=== PATIENT | male | born 1965 | race Caucasian/White ===

== ENCOUNTER → 2019-04-16 11:58 | Outpatient (BNVA) | payer MEDICAID, SELFPAY | PROVIDERS: Family Provider Family Medicine; PCP Family Medicine; Visit Provider Family Medicine | DX: E11.69 Type 2 diabetes mellitus with other specified complication (principal); I10 Essential (primary) hypertension; E78.5 Hyperlipidemia, unspecified; M96.1 Postlaminectomy syndrome, not elsewhere classified; J02.9 Acute pharyngitis, unspecified; J44.9 Chronic obstructive pulmonary disease, unspecified | CPT/HCPCS: 36415; 80053; 80061; 82044; 83036; 85025; 87070 ==

== ENCOUNTER → 2019-05-02 14:50 | Outpatient (BNVA) | payer MEDICAID, SELFPAY | PROVIDERS: Family Provider Family Medicine; PCP Family Medicine; Visit Provider Anesthesiology | DX: G89.29 Other chronic pain (principal); M54.5 Low back pain; M96.1 Postlaminectomy syndrome, not elsewhere classified; M79.651 Pain in right thigh; M79.652 Pain in left thigh; F17.210 Nicotine dependence, cigarettes, uncomplicated; Z79.891 Long term (current) use of opiate analgesic | CPT/HCPCS: 99214 ==

== ENCOUNTER → 2019-05-16 15:09 | Outpatient (BNVA) | payer MEDICAID, SELFPAY | PROVIDERS: Family Provider Family Medicine; PCP Family Medicine; Visit Provider Family Medicine | DX: I10 Essential (primary) hypertension (principal); E78.5 Hyperlipidemia, unspecified; E11.9 Type 2 diabetes mellitus without complications; J44.9 Chronic obstructive pulmonary disease, unspecified; R09.81 Nasal congestion; R35.1 Nocturia | CPT/HCPCS: 80053; 80061; 82044; 83036; 84153; 85025 ==

== ENCOUNTER → 2019-06-10 09:22 | Outpatient (BNVA) | payer MEDICAID, SELFPAY | PROVIDERS: Family Provider Family Medicine; PCP Family Medicine; Visit Provider Otolaryngology | DX: H60.8X3 Other otitis externa, bilateral (principal); J32.9 Chronic sinusitis, unspecified; R47.02 Dysphasia; J34.2 Deviated nasal septum; J34.3 Hypertrophy of nasal turbinates; K21.9 Gastro-esophageal reflux disease without esophagitis; F17.210 Nicotine dependence, cigarettes, uncomplicated; F17.220 Nicotine dependence, chewing tobacco, uncomplicated | CPT/HCPCS: 99203; 99214 ==

== ENCOUNTER 2019-06-17 11:50 | Outpatient (CLI) | payer MEDICAID, SELFPAY ==
--- NOTE | 2019-06-17 14:00 | CT_ITS ---
WS: [id number] CT scan of the sinuses without IV contrast. Additional two-dimensional coronal and sagittal reconstru ction was performed. 06/17/2019 Clinical Data: chronic sinusitis Comparison: None. DLP: 607.[address] scans at [facility] use at least one of these dose optimization techniques: automat ed exposure control; mA and/or kV adjustment per patient size (includes targeted exams where dose is matched to clinical indication); or iterative reconstruction. Findings: The sinus cavities show no air-fluid levels or bone destruction. There is mucoperiosteal thickening o f the frontal and ethmoid sinuses. The sphenoid and maxillary sinuses are clear. The orbits are intac t. The nasal bones are unremarkable. The intraorbital contents show no abnormalities. CT/CT sinus wo con* [id number] Impression: Minimal mucoperiosteal thickening of the ethmoid and frontal sinuses.
== END 2019-06-17 11:51 | disposition home or self-care (01) ==
LOC: RAD 11:54
PROVIDERS: Family Provider Family Medicine; PCP Family Medicine; Visit Provider Otolaryngology
DX: J32.9 Chronic sinusitis, unspecified (principal)
CPT/HCPCS: 70486

== ENCOUNTER → 2019-06-25 09:14 | Outpatient (BNVA) | payer MEDICAID, SELFPAY | PROVIDERS: Family Provider Family Medicine; PCP Family Medicine; Visit Provider Otolaryngology | DX: J32.9 Chronic sinusitis, unspecified (principal); J34.2 Deviated nasal septum; J34.3 Hypertrophy of nasal turbinates; K21.9 Gastro-esophageal reflux disease without esophagitis; R47.02 Dysphasia; H60.8X3 Other otitis externa, bilateral; F17.210 Nicotine dependence, cigarettes, uncomplicated | CPT/HCPCS: 96372; 99214; J3301 ==

== ENCOUNTER 2019-07-11 07:44 | Outpatient (CLI) | payer MEDICAID, SELFPAY ==
--- NOTE | 2019-07-11 08:00 | USCV_ITS ---
Terence Kate Age: 54 Gender: M : 1965 Exam Date: 07/11/2019 07:49 Ordering Phys: Brigette Newsome DO Technologist: Eliza Adair Exam Location: [facility] [place] Indication: PEDAL EDEMA BP: 130 / 80 HR: 71 Rhythm: Sinus Technical Quality: Suboptimal MEASUREMENTS (Male / Female) Normal Values 2D ECHO LV Diastolic Diameter PLAX 4.1 cm 4.2 - 5.9 / 3.9 - 5.3 cm LV Systolic Diameter PLAX 3.4 cm IVS Diastolic Thickness 1.3 cm 0.6 - 1.0 / 0.6 - 0.9 cm IVS Systolic Thickness 1.7 cm LVPW Diastolic Thickness 1.2 cm 0.6 - 1.0 / 0.6 - 0.9 cm LVPW Systolic Thickness 1.5 cm LVOT Diameter 2.1 cm LV Ejection Fraction 2D Teich 38.3 % LV Ejection Fraction MOD 2C 63.3 % LV Ejection Fraction 2C AL 64.2 % LA Diameter 4.0 cm LA Width 4.4 cm LA Height 5.2 cm RA Width 3.9 cm RA Height 4.7 cm Aorta at Sinotubular Diameter 2.5 cm M-MODE LV Diastolic Diameter MM 4.9 cm 4.2 - 5.9 / 3.9 - 5.3 cm LV Systolic Diameter MM 3.5 cm LV Ejection Fraction MM Teich 55.9 % IVS Diastolic Thickness MM 0.7 cm 0.6 - 1.0 / 0.6 - 0.9 cm IVS Systolic Thickness MM 1.2 cm LVPW Diastolic Thickness MM 1.0 cm 0.6 - 1.0 / 0.6 - 0.9 cm LVPW Systolic Thickness MM 1.7 cm RV Diastolic Diameter MM 1.6 cm Aortic Annulus Diameter 2.8 cm LA Ao Ratio MM 1.4 MV E Point Septal Separation 0.6 cm DOPPLER AV Peak Velocity 119.0 cm/s LVOT Peak Velocity 107.0 cm/s AV Area Cont Eq vti 2.9 cm squared AV Area Cont Eq pk 3.1 cm squared MV Area PHT 4.8 cm squared Mitral E to A Ratio 1.0 MV E' Velocity 11.0 cm/s Mitral E to MV E' Ratio 8.2 Mitral E to LV E' Lateral Ratio 8.3 Mitral E to LV E' Septal Ratio 8.2 TR Peak Velocity 202.0 cm/s TR Peak Gradient 16.3 mmHg TV Peak E Velocity 94.0 cm/s Right Atrial Pressure 3.0 mmHg Pulmonary Artery Systolic Pressu 19.3 mmHg PV Peak Velocity 92.0 cm/s FINDINGS Left Ventricle Normal left ventricular size and systolic function, EF 63 %. No regional wall motion abnormalities. Right Ventricle Possibly of normal size and ejection fraction. Could not be visualized well Right Atrium Possibly of normal size Left Atrium The left atrium is normal in size. Mitral Valve No gross abnormalities noted Aortic Valve No gross abnormalities noted Tricuspid Valve No gross abnormalities noted Pulmonic Valve Pulmonic valve not well visualized. Pericardium Mildly dilated IVC Aorta Normal aortic annulus size. CONCLUSIONS Normal left ventricular size and systolic function, EF 63 %. No gross wall motion abnormalities. The right atrium right ventricle appears to be of normal size with normal RV ejection fraction. Mildly dilated IVC. There is no pericardial effusion. There are no intracardiac masses. Technically difficult study because of the poor ultrasonic window. Dr Everardo Lynn MD FACC (Electronically Signed) Final Date: 11 July 2019 13:36 S
== END 2019-07-11 07:45 | disposition home or self-care (01) ==
LOC: US 07:45
PROVIDERS: Family Provider Family Medicine; PCP Family Medicine; Visit Provider Family Medicine
DX: R63.5 Abnormal weight gain (principal); R06.02 Shortness of breath
CPT/HCPCS: 93306

== ENCOUNTER → 2019-07-23 14:34 | Outpatient (BNVA) | payer MEDICAID, SELFPAY | PROVIDERS: Family Provider Family Medicine; PCP Family Medicine; Visit Provider Family Medicine | DX: R60.0 Localized edema (principal) | CPT/HCPCS: 80048 ==

== ENCOUNTER → 2019-08-15 11:52 | Outpatient (BNVA) | payer MEDICAID, SELFPAY | PROVIDERS: Family Provider Family Medicine; PCP Family Medicine; Referring Provider Family Medicine; Visit Provider Family Medicine | DX: J20.9 Acute bronchitis, unspecified (principal); F17.219 Nicotine dependence, cigarettes, with unspecified nicotine-induced disorders | CPT/HCPCS: 87449 ==

== ENCOUNTER → 2019-10-11 12:40 | Outpatient (BNVA) | payer MEDICAID, SELFPAY | PROVIDERS: Family Provider Family Medicine; PCP Family Medicine; Visit Provider Nurse Practitioner | DX: G89.29 Other chronic pain (principal); M54.2 Cervicalgia; M54.5 Low back pain; M96.1 Postlaminectomy syndrome, not elsewhere classified; F17.219 Nicotine dependence, cigarettes, with unspecified nicotine-induced disorders; F17.220 Nicotine dependence, chewing tobacco, uncomplicated; Z71.6 Tobacco abuse counseling | CPT/HCPCS: 99213 ==

== ENCOUNTER → 2019-11-20 09:18 | Outpatient (BNVA) | payer MEDICAID, SELFPAY | PROVIDERS: Family Provider Family Medicine; PCP Family Medicine; Visit Provider Family Medicine | DX: E11.9 Type 2 diabetes mellitus without complications (principal); E78.5 Hyperlipidemia, unspecified; I10 Essential (primary) hypertension; R41.3 Other amnesia; Z68.41 Body mass index [BMI] 40.0-44.9, adult; F17.210 Nicotine dependence, cigarettes, uncomplicated; Z71.6 Tobacco abuse counseling; Z71.89 Other specified counseling | CPT/HCPCS: 80053; 80061; 83036 ==

== ENCOUNTER → 2019-12-23 14:01 | Outpatient (BNVA) | payer MEDICAID, SELFPAY | PROVIDERS: Family Provider Family Medicine; PCP Family Medicine; Visit Provider Family Medicine | DX: Z20.828 Contact with and (suspected) exposure to other viral communicable diseases (principal) | CPT/HCPCS: 87635 ==

== ENCOUNTER → 2019-12-25 14:33 | Outpatient (BNVA) | payer MEDICAID, SELFPAY | PROVIDERS: Family Provider Family Medicine; PCP Family Medicine; Visit Provider Family Medicine Adult Medicine | DX: R19.7 Diarrhea, unspecified (principal) | CPT/HCPCS: 80048 ==

== ENCOUNTER → 2020-01-22 12:42 | Outpatient (BNVA) | payer MEDICAID, SELFPAY | PROVIDERS: Family Provider Family Medicine; PCP Family Medicine; Visit Provider Anesthesiology | DX: G89.29 Other chronic pain (principal); M54.42 Lumbago with sciatica, left side; M54.41 Lumbago with sciatica, right side; M54.2 Cervicalgia; M96.1 Postlaminectomy syndrome, not elsewhere classified; F17.219 Nicotine dependence, cigarettes, with unspecified nicotine-induced disorders; Z79.891 Long term (current) use of opiate analgesic | CPT/HCPCS: 99214 ==

== ENCOUNTER → 2020-04-23 14:23 | Outpatient (BNVA) | payer MEDICAID, SELFPAY | PROVIDERS: Family Provider Family Medicine; PCP Family Medicine; Referring Provider Dermatology; Visit Provider Orthopaedic Surgery | DX: M54.5 Low back pain (principal); M43.16 Spondylolisthesis, lumbar region; M47.22 Other spondylosis with radiculopathy, cervical region; G89.29 Other chronic pain | CPT/HCPCS: 72114 ==

== ENCOUNTER → 2020-04-28 12:31 | Outpatient (BNVA) | payer MEDICAID, SELFPAY | PROVIDERS: Family Provider Family Medicine; PCP Family Medicine; Visit Provider Anesthesiology | DX: G89.29 Other chronic pain (principal); M54.5 Low back pain; M96.1 Postlaminectomy syndrome, not elsewhere classified; F17.219 Nicotine dependence, cigarettes, with unspecified nicotine-induced disorders; Z79.891 Long term (current) use of opiate analgesic | CPT/HCPCS: 99213 ==

== ENCOUNTER 2020-05-11 16:20 | Outpatient (CLI) | payer MEDICAID, SELFPAY ==
--- NOTE | 2020-05-11 16:45 | MR_ITS ---
WS: [id number] MRI CERVICAL SPINE NONCONTRAST TECHNIQUE: Sagittal T1, T2 and STIR imaging. Axial T2, gradient, and fiesta imaging. CLINICAL INFORMATION: M47.22 - Other spondylosis with radiculopathy, cervical region COMPARISON: MRI 4 017 FINDINGS: Straightening of the normal cervical lordosis. Disc osteophyte complex at C4-C5 and C5-C6. Cord signa l is normal. C2-C3: Normal. C3-C4: Mild right and no significant left foraminal narrowing. Spinal canal is patent. C4-C5: Disc osteophyte complex with endplate ridging. Moderate central canal stenosis. Slight impinge ment on the cervical cord. Moderate bilateral bony foraminal narrowing. Mild facet arthropathy. C5-C6: Disc osteophyte complex with endplate ridging. Right pericentral disc osteophyte protrusion wi th moderate central canal stenosis. Moderate left and mild right bony foraminal narrowing. Moderate f acet arthropathy. C6-C7: Mild left and no significant right foraminal narrowing. Spinal canal is patent. C7-T1: Mild left greater than right bony foraminal narrowing. Spinal canal is patent. Visualized brain stem structures: Normal. Prevertebral soft tissues: Normal. MR/MR cervical spin wo con* [id number] IMPRESSION: 1. Straightening of the normal cervical lordosis. Cord signal is normal. 2. Moderate central canal stenosis C4-C5 and C5-C6 due to disc osteophyte comp lexes and slight contact of the cervical cord. Protrusion at C4-5 has improved slightly compared to 2017. 3. Moderate bony foraminal narrowing worse at bilateral C4-5, left C5-C6
--- NOTE | 2020-05-11 17:30 | MR_ITS ---
WS: [id number] MRI LUMBAR SPINE NONCONTRAST TECHNIQUE: Sagittal T1, T2 and STIR imaging. Axial T1 and T2 imaging. CLINICAL INFORMATION: M43.10 - Spondylolisthesis, site unspecified COMPARISON: CT October 24, 2017 FINDINGS: Mild lumbar curve convex left. No acute compression. No high-grade central canal stenosis. Postoperat jerry changes laminectomies right L3-4 and bilateral L4-5. Mild disc bulging lower thoracic spine at T1 0-11 and T11-T12. L1-L2: Mild annular bulging. Slight effacement of ventral thecal sac. Mild right foraminal narrowing. Mild central canal stenosis. Moderate facet arthropathy. L2-L3: Mild disc bulging with moderate central canal stenosis. Moderate facet arthropathy. Mild bilat eral foraminal narrowing right greater than left. L3-L4: Postoperative changes right hemilaminectomy. Mild central canal stenosis. Foramen are patent. Moderate facet arthropathy. L4-L5: Grade 1 anterolisthesis L4 on L5. Disc bulging with impingement on the exiting right L4 nerve root. Moderate right foraminal narrowing. Mild left foraminal narrowing. Moderate to advanced facet a rthropathy. L5-S1: Tiny central disc protrusion. Slight effacement of ventral thecal sac. Foramen are patent. Mil d facet arthropathy. Visualized pelvic bony structures: Normal. Paravertebral soft tissues: Normal. MR/MR lumbar spine wo con* [id number] IMPRESSION: 1. Mild lumbar curve. No acute compression. Prior laminectomy defects L3-L4 an d L4-L5. 2. Grade 1 anterolisthesis L4 on L5 progressed from previous. Moderate central canal stenosis L4-5 with impingement on the exiting right L4 nerve root. Moder ate right foraminal narrowing. Correlation for right L4 nerve root symptoms. 3. Slight retrolisthesis L1 on L2 with mild central canal stenosis and narrowi ng of the right subarticular recess. 4. Moderate central canal stenosis L2-3. 5. Moderate facet arthropathy worse at L3-L4 and L4-L5.
== END 2020-05-11 16:21 | disposition home or self-care (01) ==
LOC: RADSHAW 16:21
PROVIDERS: PCP Family Medicine; Visit Provider Orthopaedic Surgery
DX: M47.22 Other spondylosis with radiculopathy, cervical region (principal); M43.10 Spondylolisthesis, site unspecified; M47.816 Spondylosis without myelopathy or radiculopathy, lumbar region; M96.1 Postlaminectomy syndrome, not elsewhere classified; M48.02 Spinal stenosis, cervical region; M25.78 Osteophyte, vertebrae; M50.221 Other cervical disc displacement at C4-C5 level
CPT/HCPCS: 72141; 72148

== ENCOUNTER → 2020-06-04 10:16 | Outpatient (BNVA) | payer MEDICAID, SELFPAY | PROVIDERS: PCP Family Medicine; Visit Provider Specialist | DX: M25.561 Pain in right knee (principal); M25.562 Pain in left knee | CPT/HCPCS: 73560; 73565 ==

== ENCOUNTER → 2020-06-18 | Day surgery (SDC) | payer MEDICAID, SELFPAY | PROVIDERS: PCP Family Medicine; Visit Provider Orthopaedic Surgery | DX: Z01.818 Encounter for other preprocedural examination (principal) | CPT/HCPCS: 93005 ==

== ENCOUNTER → 2020-06-19 13:54 | Outpatient (BNVA) | payer MEDICAID, SELFPAY | PROVIDERS: PCP Family Medicine; Visit Provider Family Medicine | DX: Z01.818 Encounter for other preprocedural examination (principal); Z20.822 Contact with and (suspected) exposure to COVID-19; R09.81 Nasal congestion; M47.12 Other spondylosis with myelopathy, cervical region | CPT/HCPCS: 87635 ==

== ENCOUNTER 2020-06-24 07:33 | Day surgery (SDC) | payer MEDICAID, SELFPAY ==
--- NOTE | 2020-06-18 09:50 | ECG_ITS ---
[facility] Test Date: 2020-06-18 Pat Name: Terence Kate Department: Room: Gender: Male Engineering Administrator: : 1965 Requested By: Issac Kwon Order Number: [id number] Pj MD: Everardo Lynn M.D. Measurements Intervals [place] Rate: 86 P: 53 TX: 188 QRS: 14 QRSD: 93 T: 46 QT: 357 QTc: 427 Interpretive Statements SINUS RHYTHM LOW QRS VOLTAGE IN PRECORDIAL LEADS [QRS DEFLECTION < 1.0 mV IN CHEST LEADS] Compared to ECG 11/05/2016 19:32:48 Low QRS voltage now present Ventricular premature complex(es) no longer present Electronically Signed On 06-19-2020 23:17:58 CDT by Everardo Lynn M.D. [id number]
--- NOTE | 2020-06-18 09:50 | XR_ITS ---
WS: [id number] XR chest 2V* [id number] REASON FOR EXAM: pre op FINDINGS: The chest is unchanged compared to 02/08/2018. The heart and mediastinum are within normal limits. Calcified granulomatous disease is seen bilaterally. No active pulmonary parenchymal or pleural disease is noted. Mild to moderate changes of degenerative spondylosis in the mid and lower thoracic spine. XR/XR chest 2V* [id number] IMPRESSION: No acute chest abnormality.
--- NOTE | 2020-06-18 09:51 | ANES.PREANE2 ---
Pre-Anesthetic Assessment Pre-Anesthetic Assessment: Height/Weight: Height 1.75 m Weight 133.356 kg Preop Diagnosis: cervical spondylosis with myelopathy Proposed Procedure: Operation Date: 06/24/20 09:20 Proposed Procedures p C4/ 5/6 [id number], [id number], 83633, 17442, 09048 M47.12(Not Applicable) - Nadir Arrington, DO Was Beta Ariel taken within 24 hours: N/A Was Clonidine taken within 24 hours: N/A Social: Social History: Tobacco and No alcohol Exam: Pre-Anes Outpt Exam: alert, oriented x 3 and regular rate & rhythm Additional Exam Findings (including area of procedure): rhonchi Airway: Submandibular: WNL Cervical ROM: WNL MP: 2 Dentition: False Pulmonary: Pulmonary: COPD, JOHNS and Sleep apnea CV/HEM: CV/HEM: CAD, HTN and PVD GI: GI: GERD and PUD Metabolic: Metabolic: DM and Morbid obesity Musc/skel: Musc/skel: OA/DJD Comments: Chronic back pain, BUE pain/weak Anesthetic Plan: ASA status: 3 Anesthesia: General Other: A.line Risk of > 500 ml blood loss (7ml/kg in children): No PFSH Anesthesia PFSH: Medical History Lucio esophagus BPH (benign prostatic hyperplasia) Carotid stenosis, left CHF (congestive heart failure) Chronic GERD Chronic otitis externa Chronic sinusitis COPD, moderate Deviated septum Dyslipidemia Dysphasia Encounter for long-term (current) use of NSAIDs Encounter for long-term opiate analgesic use Encounter for long-term opiate analgesic use Epilepsy Essential (primary) hypertension GERD (gastroesophageal reflux disease) Lumbar post-laminectomy syndrome Nasal turbinate hypertrophy Opioid contract exists Personal history of peptic ulcer disease Type 2 diabetes mellitus, without long-term current use of insulin Surgical History H/O carpal tunnel repair H/O cataract extraction H/O hernia repair History of back surgery History of cholecystectomy Family History Father Cancer LUNG Diabetes CAD (coronary artery disease) Mother Cancer STOMACH CAD (coronary artery disease) Sister Down syndrome HALF SISTER Other Parkinson disease Social History Smoking and tobacco status: current every day smoker cigarettes Packs smoked per day: 1 and smokeless tobacco Quit status (tobacco): considering quitting Alcohol intake: former Lives independently: Yes Household members: spouse History of recent travel: No Data Anesthesia CBC & Chem 7: 06/18/20 09:39 06/18/20 09:29 Cardiac Studies: No Data to Display
[2020-06-18 09:53] LABS: Basophils # 0.1 10^3/uL (0.0-0.1); Basophils % 0.6 %; Eosinophils # 0.2 10^3/uL (0.0-0.8); Eosinophils % 1.8 %; Hematocrit 47.6 % (42.0-52.0); Hemoglobin 15.7 g/dL (11.7-16.6); Lymphocytes # 1.7 10^3/uL (0.8-4.8); Lymphocytes % 19.5 %; Mean Corpuscular Hemoglobin 31.4 pg (28.0-34.0); Mean Corpuscular Volume 95.2 fL (80-94); Mean Platelet Volume 9.2 fL (7.4-10.4); Monocytes # 0.5 10^3/uL (0.2-0.9); Monocytes % 5.4 %; Neutrophils # 6.27 10^3/uL (1.8-7.7); Neutrophils % 72.4 %; Nucleated Red Blood Cells % 0 %; Platelet Count 221 10^3/cmm (130-400); Red Cell Distribution Width 13.2 % (12.1-15.1); White Blood Count 8.7 10^3/uL (4.0-10.0)
[2020-06-18 10:10] LABS: Alanine Aminotransferase 24 U/L (0-41); Albumin Level 3.8 g/dL (3.5-5.2); Alkaline Phosphatase 69 IU/L (40-130); Anion Gap 14.8 (5-19); Aspartate Amino Transferase 22 U/L (0-40); Blood Urea Nitrogen 15 mg/dL (6-20); Calcium 9.2 mg/dL (8.5-10.5); Carbon Dioxide 28 mmol/L (22-29); Chloride 98 mmol/L (98-107); Glomerular Filtration Rate 87.6 mL/min (90-130); Glucose 111 mg/dL (65-115); Osmolality Calculated 286 mOsm/kg (285-295); Potassium 3.8 mmol/L (3.5-5.1); Sodium 137 mmol/L (136-145); Total Bilirubin 0.3 mg/dL (0.15-1.2); Total Protein 6.8 g/dL (6.6-8.7)
[2020-06-24] VITALS (13 sets, daily range): BP systolic 128–175; BP diastolic 82–109; PULSE 88–99; RESP 12–22; TEMP 36.4–37.2; O2SAT 94–100
--- NOTE | 2020-06-24 | SCC_ITS ---
Procedure Done: 1. Anterior diskectomy C4/5 2. Anterior discectomy C5/6 3. Insertion of cage C4/5 4. Insertion of Cage C5/6 5. Instrumentation with anterior plate from C4-C6 6. Use of allograft 28.4 seconds of fluoroscopic guidance, for a cumulative dose of 4.52 mGy, was provided to Dr. Arrington by the radiology department. C-arm images of the cervical spine were saved for the patient's permanent record. MIRIAND
--- NOTE | 2020-06-24 | XR_ITS ---
WS: [id number] Exam: XR cervical spine 3V* [id number] Date/Time of Exam: 06/24/2020 12:00 AM Reason For Exam: ACDF Intraoperative C-arm images of the cervical spine in the lateral and AP projection are submitted for evaluation. There is anterior cervical fusion from C4 to C6 with anterior plate and screw fixation. There are dis c spacers at C4-5 and C5-6. The fusion appears to be in good alignment. An endotracheal tube is noted in the airway and ends at about the level of T3. XR/XR cervical spine 3V* [id number] IMPRESSION: 1. Anterior fusion of the C-spine from C4 to C6 appearing to be in satisfactory alignment.
[2020-06-24] MEDS: sodium chloride 0.9% 1,000 ML 30 ML IV (08:14)
[2020-06-24 08:18] LABS: Glucose Point of Care 115 mg/dL (70-110)
--- NOTE | 2020-06-24 09:23 | W.PM.OPSUD ---
Surgery/Procedure H&P Update DATE OF PROCEDURE: June 24, 2020 DATE H&P PERFORMED: 06/24/20 H&P UPDATE INFORMATION: I have reviewed H&P completed within last 30 days PREOP DIAGNOSIS: cervical spondylosis with myelopathy PLANNED PROCEDURE: Operation Date: 06/24/20 09:20 Proposed Procedures p C4/ 5/6 [id number], [id number], 36403, 34828, 96321 M47.12(Not Applicable) - Nadir Arrington DO
--- NOTE | 2020-06-24 09:24 | P.HP_ITS ---
Providers/Chief Complaint Primary Care Provider: Brigette Newsome DO Chief Complaint: C4/ 5/6 [id number], [id number], 05615, 41722, 84553 History of Present Illness Terence Kate is a 55 year old male here for low back pain. Chief Complaint: pain from neck to the back Onset: 2 months ago he stepped into a hole and fell Duration: 2 months Characteristics: burning, stabbing, ache numbness Severity: 10+ Location: low back Radiating symptoms: bilateral hip, and knee pain Aggravating factors: sitting causes burning sensation, standing Alleviating factors: rest/sitting, back brace Neuro deficits: denies incontinence of bowel, saddle anesthesia. Prior tx: fusion with Dr. Perez in 2017. Injections with no releif Review of Systems Narrative: General: Reports: 10 or more systems reviewed and unremarkable except as noted in History and below Const: Denies: fever(s) or chills Eyes: Denies: change in vision ENMT: Denies: throat pain Card: Denies: chest pain or dyspnea on exertion Resp: Denies: dyspnea, productive cough or wheezing GI: Denies: abdominal pain, nausea or vomiting Musc: Reports: limited range of motion Skin/Breast: Denies: changes in skin color or dry skin Neuro: Reports: numbness in extremities and weakness in extremities Psych: Denies: anxiety Naeem/Lymph: Denies: easy bruising or easy bleeding Medications/Allergies Home Medications Medication Instructions Recorded Confirmed Last Taken Type albuterol sulfate 90 mcg/actuation 2 puff INHALATION Q6H PRN #8.5 gm 04/08/19 06/24/20 06/24/20 06:00 Rx aerosol inhaler acetaminophen 500 mg tablet 1,000 mg PO Q6H PRN 04/16/19 06/19/20 06/18/20 History aspirin 81 mg tablet,delayed 81 mg PO ONCE 04/16/19 06/24/20 06/18/20 History release triamcinolone acetonide 0.1 % 1 applic TOPICAL BID 04/16/19 06/24/20 06/23/20 History topical cream diabetic shoes with leg brace #1 ea 10/17/19 06/19/20 Unknown Rx tamsulosin 0.4 mg capsule 0.8 mg PO ONCE #180 cap 01/02/20 06/19/20 06/23/20 Rx metformin 500 mg tablet 500 mg PO BID #180 tab 01/21/20 06/19/20 06/23/20 Rx terbinafine HCl 1 % topical cream 1 applic TOPICAL .1-2 times daily 02/06/20 06/19/20 06/23/20 Rx #30 gm blood sugar diagnostic #100 each 04/07/20 06/19/20 Unknown Rx mupirocin 2 % topical ointment 1 applic TOPICAL BID #30 g 04/23/20 06/24/20 06/21/20 Rx tramadol 50 mg tablet 50 mg PO BID PRN 30 Days #60 tab 04/28/20 06/24/20 06/23/20 Rx baclofen 5 mg tablet 5 mg PO TID PRN #90 tab 05/04/20 06/19/20 06/23/20 Rx amlodipine 5 mg tablet 5 mg PO ONCE #30 tab 06/01/20 06/19/20 06/23/20 Rx budesonide-formoterol HFA 160 2 puff INHALATION BID #10.2 gm 06/01/20 06/19/20 06/24/20 06:00 Rx mcg-4.5 mcg/actuation aerosol inhaler finasteride 5 mg tablet 5 mg PO ONCE #30 tab 06/01/20 06/24/20 06/23/20 Rx furosemide 40 mg tablet 40 mg PO QAM #30 tab 06/01/20 06/24/20 06/23/20 Rx gabapentin 800 mg tablet 800 mg PO TID #90 tab 06/01/20 06/19/20 06/23/20 Rx hydrochlorothiazide 25 mg tablet 25 mg PO ONCE #30 tab 06/01/20 06/24/20 06/23/20 Rx nitroglycerin 0.4 mg sublingual See Rx Instructions .ROUTE 06/01/20 06/24/20 Unknown Rx tablet .COMPLEX #25 each pantoprazole 40 mg tablet,delayed 40 mg PO ONCE #30 tab 06/01/20 06/24/20 06/23/20 Rx release potassium chloride 20 mEq 20 meq PO BID #60 tab 06/01/20 06/19/20 06/23/20 Rx tablet,extended release simvastatin 10 mg tablet 10 mg PO DAILY #30 tab 06/01/20 06/19/20 06/23/20 Rx AFO for foot drop bilaterally #1 ea 06/04/20 06/19/20 Unknown Rx Diabetic shoes with inserts #1 ea 06/04/20 06/19/20 Unknown Rx toe sleeve for second toe left #1 ea 06/04/20 06/19/20 Unknown Rx foot fexofenadine 180 mg tablet 180 mg PO DAILY #30 tab 06/19/20 06/19/20 06/23/20 Rx mometasone 50 mcg/actuation nasal 2 spray INTRANASAL DAILY #17 g 06/19/20 06/19/20 Unknown Rx spray Allergies Allergy/AdvReac Type Severity Reaction Status Date / Time acetaminophen [From Percocet] Allergy ALGY-Difficulty Verified 06/24/20 07:45 Breathing bupropion [From Zyban] Allergy Unknown Verified 06/24/20 07:45 duloxetine [From Cymbalta] Allergy ALGY-Difficulty Verified 06/24/20 07:45 Swallowing levofloxacin [From Levaquin] Allergy ADR-Itching Verified 06/24/20 07:45 loratadine [From Claritin] Allergy ALGY-Rash Verified 06/24/20 07:45 oxycodone [From Percocet] Allergy ALGY-Difficulty Verified 06/24/20 07:45 Breathing Sulfa (Sulfonamide Allergy ALGY-Rash Verified 06/24/20 07:45 Antibiotics) topiramate [From Topamax] Allergy ALGY-Rash Verified 06/24/20 07:45 varenicline [From Chantix] Allergy ALGY-Rash Verified 06/24/20 07:45 PFSH Acute PFSH: Medical History (Updated 06/19/20 @ 11:18 by Brigette Newsome DO) Lucio esophagus BPH (benign prostatic hyperplasia) Carotid stenosis, left Cervical spondylosis with myelopathy CHF (congestive heart failure) Chronic GERD Chronic otitis externa Chronic sinusitis COPD, moderate Deviated septum Dyslipidemia Dysphasia Encounter for long-term (current) use of NSAIDs Encounter for long-term opiate analgesic use Encounter for long-term opiate analgesic use Epilepsy Essential (primary) hypertension GERD (gastroesophageal reflux disease) Lumbar post-laminectomy syndrome Nasal turbinate hypertrophy Opioid contract exists Personal history of peptic ulcer disease Type 2 diabetes mellitus, without long-term current use of insulin Surgical History H/O carpal tunnel repair H/O cataract extraction H/O hernia repair History of back surgery History of cholecystectomy Family History Father Cancer LUNG Diabetes CAD (coronary artery disease) Mother Cancer STOMACH CAD (coronary artery disease) Sister Down syndrome HALF SISTER Other Parkinson disease Social History Smoking and tobacco status: current every day smoker cigarettes Packs smoked per day: 2 and smokeless tobacco Quit status (tobacco): considering quitting Alcohol intake: former Lives independently: Yes Household members: spouse History of recent travel: No Vitals/I&O/Wt Last Vital Signs Temp 97.5 F L 06/24/20 07:53 Pulse 88 06/24/20 07:53 Resp 18 06/24/20 07:53 BP 150/87 06/24/20 08:14 Pulse Ox 95 06/24/20 07:53 Physical Exam Narrative: EXAM NARRATIVE: EXAM NARRATIVE: CONSTITUTIONAL: The patient is normal appearing, well groomed, cooperative and in no apparent distress. GENERAL: Patient in no acute distress. Well nourished. CARDIAC: Regular rate and rhythm. CHEST: Normal inspiratory effort, normal respiratory rate. ABDOMEN: Soft and non-tender. SKIN: Clear, warm and intact. NEURO?PSYCH: The patient is alert and oriented to person, place and time. NEUROVASCULAR: Upper Extremity Sensory - SILT. Motor Strength: Shoulder abd uction C5: 5/5; Wrist extension C6: 5/5; Elbow extension C7: 5/5; Hand Drag Out Worker C8: 5/5; Finger abduction T1: 5/5. Radial/ Ulnar/ Median in intact Lower Extremity Sensory - SILT. Motor Strength: Hip flexion L2/3; Ant/inner thigh: 5/5; Hip adduction L2/3: 5/5; Knee extension L4 Lat thigh: 5/5; Toe do rsiflexion L5: 5/5; Ankle dorsiflexion L5/ S1: 5/5; Plantar flexion S1: 5/5. DTR: Triceps 2+; Brachioradialis 2+; Patellar 2+; Achilles 2+. MUSCULOSKELETAL: UPPER EXTREMITIES: The patient had full active ROM in fingers, wrist, elbow, and shoulder. The patient demonstrated ability to fully flex/extend/abduct/adduct fingers, make ok sign, cross 2nd/3rd digits, extend 1st digit fully.. Radial pul se 2+, CR<2 seconds. LOWER EXTREMITIES: Pt has full, active ROM of toes, ankle, knee, and hip. Dorsa lis pedis & posterior tibialis pulses 2+, CR<2 seconds. SPINE: Skin warm, dry, intact. Data : 06/18/20 09:39 06/18/20 09:29 A&P Assessment and plan (1) Cervical spondylosis with myelopathy: C4/5 and C5/6 ACDF Status: Acute Attestations Medical Necessity Statement*: progressive myelopathy Coding Level of Care Code Acute Fiberglass Laminator for [facility] Diagnoses Cervical spondylosis with myelopathy M47.12
--- NOTE | 2020-06-24 12:19 | SUR.OPER ---
family udated of surgical status
[2020-06-24] MEDS: thrombin 5,000 unit SDV 5000 UNIT XX (12:28)
--- NOTE | 2020-06-24 14:27 | PM.OP ---
Operative Report Date of procedure: June 24, 2020 Pre-op Diagnosis: cervical spondylosis with myelopathy Post-op diagnosis: same Procedure Done: 1. Anterior diskectomy C4/5 2. Anterior discectomy C5/6 3. Insertion of cage C4/5 4. Insertion of Cage C5/6 5. Instrumentation with anterior plate from C4-C6 6. Use of allograft Surgeon: Nadir Arrington Anesthesia: General Estimated blood loss (mL): 50 Condition: stable Disposition: PACU Procedure: 1. Anterior diskectomy C4/5 2. Anterior discectomy C5/6 3. Insertion of cage C4/5 4. Insertion of Cage C5/6 5. Instrumentation with anterior plate from C4-C6 6. Use of allograft The patient was taken to the operating room, where he underwent general endotracheal anesthesia without complications. He was then positioned supine on the operating table, and all areas of impingement were well padded. The arms were carefully padded and tucked at his sides. A roll was placed between the shoulder blades.. An x-ray was done to determine the appropriate level for the skin incision. The entire neck was then sterilely prepped and draped in the usual fashion. Neuromonitoring was attached prior to prepping. A transverse skin incision was made and carried down to the platysma muscle. This was then split in line with its fibers. Blunt dissection was carried down medial to the carotid sheath and lateral to the trachea and esophagus until the anterior cervical spine was visualized. A needle was placed into a disc and an x-ray was done to determine its location. The longus colli muscles were then elevated bilaterally with the electrocautery unit. Self-retaining retractors were placed deep to the longus colli muscle. Attention was brought to the C4-6 level that was confirmed on x-ray. The disk space was then distracted. The microscope was then brought in. A radical anterior discectomies were performed at C4/5. This included complete removal of the anterior annulus, nucleus, and posterior annulus. The posterior longitudinal ligament was removed as were the posterior osteophytes. Foraminotomies were then accomplished bilaterally. This was done using a high speed maria, kerrison rongeurs and curretes Once all of this was accomplished, the curved currette was used to check for any residual compression. The central canal was wide open as were the foramen. A high-speed bur was used to remove the cartilaginous endplates above and below the interspace. Bleeding cancellous bone was exposed. The disc space were measured and appropriate size cage were placed sterilely onto the field. Allograft graft was packed into the cages. The cage was then placed and there was good juxtaposition against the bleeding decorticated surfaces and good distraction of each interspace. Attention was brought to the next interspace. A radical anterior discectomies were performed at C5/6. This included complete removal of the anterior annulus, nucleus, and posterior annulus. The posterior longitudinal ligament was removed as were the posterior osteophytes. Foraminotomies were then accomplished bilaterally. This was done using a high speed maria, kerrison rongeurs and curretes Once all of this was accomplished, the curved currette was used to check for any residual compression. The central canal was wide open as were the foramen. A high-speed bur was used to remove the cartilaginous endplates above and below the interspace. Bleeding cancellous bone was exposed. The disc space were measured and appropriate size cage were placed sterilely onto the field. Allograft graft was packed into the cages. The cage was then placed and there was good juxtaposition against the bleeding decorticated surfaces and good distraction of each interspace The appropriate size anterior cervical locking plate was chosen and bent into gentle lordosis. Two screws were then placed into each of the vertebral bodies at C4,C5,C6. There was excellent purchase. A final x-ray was done confirming good position of the hardware and Cages. The locking screws were then applied, also with excellent purchase. Following a final copious irrigation, there was good hemostasis and no dural leaks. The carotid pulse was strong. The wounds were then closed in layers using 2-0 Vicryl suture for the platysma muscle, 2-0 Vicryl suture for the subcutaneous tissue, and 4-0 monocryl suture in a subcuticular skin closure. Glue was placed followed by application of a sterile dressing. The drain was hooked to bulb suction. A soft collar was applied. The patient was then carefully returned to the supine position on his hospital bed where he was reversed and extubated and taken to the recovery room having tolerated the procedure well.
--- NOTE | 2020-06-24 14:38 | SUR.PHASEI ---
1432- ORAL AIRWAY REMOVED PER JESÚS SCHUSTER. SIMPLE MASK IN PLACE AT 6LPM SAT 97%
--- NOTE | 2020-06-24 14:45 | P.PCN_ITS ---
PACU note PACU note: VSS, Good respiratory effort, report to RESEARCH RECRUITER Post-Anesthesia Exam: awake
--- NOTE | 2020-06-24 14:45 | PM.PACU ---
PACU note PACU note: VSS, Good respiratory effort, report to QUALIFICATION ENGINEER Post-Anesthesia Exam: awake
[2020-06-24] MEDS: HYDROcodone-acetaminophen 5-325 mg Tablet 1 TAB PO (15:41)
--- NOTE | 2020-06-24 20:22 | ANE.PACU2 ---
Inpatient post-anesthesia follow up: Airway intact: Yes Vital signs: Temperature 97.9 F Pulse Rate 95 Respiratory Rate 17 Blood Pressure 169/89 Pulse Oximetry 96 Oxygen Delivery Me thod Room Air Oxygen Flow Rate 6 Fraction of Inspir ed Oxygen Hydration adequate: Yes Nausea and vomiting: No Pain level: 3 Mental status: Baseline
== END 2020-06-24 16:25 | disposition home or self-care (01) ==
PROVIDERS: Anesthesiology; PCP Family Medicine; Visit Provider Orthopaedic Surgery
PROC: 0RB30ZZ Excision of Cervical Vertebral Disc, Open Approach (ICD-10-PCS; CPT 22551; principal; 2020-06-24 09:10)
DX: M47.12 Other spondylosis with myelopathy, cervical region (principal); N40.0 Benign prostatic hyperplasia without lower urinary tract symptoms; J44.9 Chronic obstructive pulmonary disease, unspecified; E78.5 Hyperlipidemia, unspecified; I11.0 Hypertensive heart disease with heart failure; I50.9 Heart failure, unspecified; K21.9 Gastro-esophageal reflux disease without esophagitis; E11.9 Type 2 diabetes mellitus without complications; Z87.11 Personal history of peptic ulcer disease; F17.210 Nicotine dependence, cigarettes, uncomplicated; G47.30 Sleep apnea, unspecified; E66.01 Morbid (severe) obesity due to excess calories; Z68.41 Body mass index [BMI] 40.0-44.9, adult; M19.90 Unspecified osteoarthritis, unspecified site
CPT/HCPCS: 20930; 22551; 22552; 22845; 22853; 36416; 71046; 72040; 76000; 80053; 82962; 85025; 96365; 97760; C1713; C9359; J0330; J0690; J2250; J2405; J2704; J3010; J3490; J7030; J7611; L0174

== ENCOUNTER → 2020-08-04 13:47 | Outpatient (BNVA) | payer MEDICAID, SELFPAY | PROVIDERS: PCP Family Medicine; Visit Provider Anesthesiology | DX: G89.29 Other chronic pain (principal); M96.1 Postlaminectomy syndrome, not elsewhere classified; M54.5 Low back pain; F17.219 Nicotine dependence, cigarettes, with unspecified nicotine-induced disorders; Z79.891 Long term (current) use of opiate analgesic | CPT/HCPCS: 99213 ==

== ENCOUNTER → 2020-08-06 13:16 | Outpatient (BNVA) | payer MEDICAID, SELFPAY | PROVIDERS: PCP Family Medicine; Visit Provider Orthopaedic Surgery | DX: Z48.89 Encounter for other specified surgical aftercare (principal); Z98.1 Arthrodesis status | CPT/HCPCS: 72040 ==

== ENCOUNTER → 2020-09-07 10:27 | Outpatient (BNVA) | payer MEDICAID, SELFPAY | PROVIDERS: PCP Family Medicine; Visit Provider Podiatrist Foot & Ankle Surgery | DX: M21.371 Foot drop, right foot (principal); M21.372 Foot drop, left foot; E11.9 Type 2 diabetes mellitus without complications; E11.42 Type 2 diabetes mellitus with diabetic polyneuropathy; M20.40 Other hammer toe(s) (acquired), unspecified foot; M21.41 Flat foot [pes planus] (acquired), right foot; M21.42 Flat foot [pes planus] (acquired), left foot; M79.673 Pain in unspecified foot | CPT/HCPCS: 73630 ==

== ENCOUNTER → 2020-09-17 11:00 | Outpatient (BNVA) | payer MEDICAID, SELFPAY | PROVIDERS: PCP Family Medicine; Visit Provider Orthopaedic Surgery | DX: Z48.89 Encounter for other specified surgical aftercare (principal); M47.12 Other spondylosis with myelopathy, cervical region; M54.2 Cervicalgia; Z98.1 Arthrodesis status; M19.072 Primary osteoarthritis, left ankle and foot | CPT/HCPCS: 72040; 73080; 73560; 73565 ==

== ENCOUNTER → 2020-11-13 09:10 | Outpatient (BNVA) | payer MEDICAID, SELFPAY | PROVIDERS: PCP Family Medicine; Visit Provider Family Medicine | DX: Z01.818 Encounter for other preprocedural examination (principal); E78.5 Hyperlipidemia, unspecified; E11.9 Type 2 diabetes mellitus without complications | CPT/HCPCS: 80053; 80061; 82043; 83036; 85025 ==

== ENCOUNTER → 2020-11-20 15:26 | Outpatient (BNVA) | payer MEDICAID, SELFPAY | PROVIDERS: PCP Family Medicine; Visit Provider Orthopaedic Surgery | DX: Z20.822 Contact with and (suspected) exposure to COVID-19 (principal) | CPT/HCPCS: 87635 ==

== ENCOUNTER 2020-11-25 16:33 | Observation (INO) | payer MEDICAID, SELFPAY ==
[2020-11-19 11:06] VITALS: BMI 42.6
--- NOTE | 2020-11-19 12:01 | ANES.PREANE2 ---
Pre-Anesthetic Assessment Pre-Anesthetic Assessment: Height/Weight: Height 1.78 m Weight 134.717 kg Preop Diagnosis: cervical spondylosis with myelopathy Proposed Procedure: Operation Date: 11/25/20 07:00 Proposed Procedures p PLIF L 4/5 44021, 30417, 44215, 12066, 49847, 90883, 47666 m47.16(Not Applicable) - Nadir Arrington DO Familial anesthetic complications: none Social: Social History: Tobacco Exam: Pre-Anes Outpt Exam: alert, oriented x 3, clear to auscultation bilaterally and regular rate & rhythm Airway: Cervical ROM: Other (neck fusion, limited extension) MP: 1 Dentition: Other (2 plates) Pulmonary: Pulmonary: COPD (2 L NC when allergies are bad, hasn't used oxygen in 2 year though) and Sleep apnea CV/HEM: CV/HEM: HTN Comments: Echo 2020 CONCLUSIONS Normal left ventricular size and systolic function, EF 63 %. No gross wall motion abnormalities. The right atrium right ventricle appears to be of normal size with normal RV ejection fraction. Mildly dilated IVC. There is no pericardial effusion. There are no intracardiac masses. Technically difficult study because of the poor ultrasonic window. GI: GI: GERD Metabolic: Metabolic: DM and Morbid obesity Musc/skel: Musc/skel: Lower Back Pain Comments: Juvenile arthritis Neuropsych: Neuropsych: Seizure (epilepsy - no seizure in 30 years, no longer on medications) Anesthetic Plan: ASA status: 3 Anesthesia: General Risk of > 500 ml blood loss (7ml/kg in children): No PFSH Anesthesia PFSH: Medical History Lucio esophagus BPH (benign prostatic hyperplasia) Carotid stenosis, left Cervical spondylosis with myelopathy CHF (congestive heart failure) Chronic GERD Chronic otitis externa Chronic sinusitis COPD, moderate Deviated septum Dyslipidemia Dysphasia Encounter for long-term (current) use of NSAIDs Encounter for long-term opiate analgesic use Encounter for long-term opiate analgesic use Epilepsy Essential (primary) hypertension GERD (gastroesophageal reflux disease) Lumbar post-laminectomy syndrome Nasal turbinate hypertrophy Opioid contract exists Personal history of peptic ulcer disease Type 2 diabetes mellitus, without long-term current use of insulin Surgical History H/O carpal tunnel repair H/O cataract extraction H/O hernia repair History of back surgery History of cholecystectomy Family History Father Cancer LUNG Diabetes CAD (coronary artery disease) Mother Cancer STOMACH CAD (coronary artery disease) Sister Down syndrome HALF SISTER Other Parkinson disease Social History Smoking and tobacco status: current every day smoker cigarettes Packs smoked per day: 2 and smokeless tobacco Quit status (tobacco): considering quitting Alcohol intake: former Lives independently: Yes Household members: spouse History of recent travel: No Data Anesthesia Cardiac Studies: No Data to Display
[2020-11-25] VITALS (26 sets, daily range): BP systolic 140–181; BP diastolic 79–130; PULSE 89–100; RESP 14–29; TEMP 36.7–37.3; O2SAT 92–100
--- NOTE | 2020-11-25 | XR_ITS ---
WS: [id number] C-ARM RADIOGRAPHS LUMBAR SPINE; 3 IMAGES HISTORY: plif COMPARISON: None available. Intraoperative imaging during posterior lumbar fusion. Very limited osseous detail of the radiographs submitted. XR/XR lumbar spine 2-3V* 24632 IMPRESSION: Intraoperative imaging during posterior lumbar fusion.
--- NOTE | 2020-11-25 | SCC_ITS ---
Procedure Done: 1. L4/5 Interbody fusion with posterolateral fusion 2. Instrumentation L4/5 3. Cage at L4/5 4. Laminectomy L4 5. use of autograft from same incision 6. allograft 7. Bone marrow aspirate from right iliac crest Right 8. Use of Computer navigation/ stereotactic for spine 16 seconds of fluoroscopic guidance, for a cumulative dose of 77.5 mGy, was provided to Dr. Arrington by the radiology department. C-arm images of the lumbar spine were saved for the patient's permanent record. INGRID
[2020-11-25 07:36] LABS: Glucose Point of Care 114 mg/dL (70-110)
[2020-11-25] MEDS: sodium chloride 0.9% 1,000 ML 30 ML IV (07:41)
--- NOTE | 2020-11-25 07:45 | P.HPUD_ITS ---
Surgery/Procedure H&P Update DATE OF PROCEDURE: November 25, 2020 DATE H&P PERFORMED: 11/25/20 PREOP DIAGNOSIS: spondylolisthesis PLANNED PROCEDURE: Operation Date: 11/25/20 07:00 Proposed Procedures p PLIF L 07/06 86268, 92329, 61719, 00679, 72074, 02357, 62013 m47.16(Not Applicable) - Nadir Arrington, DO
--- NOTE | 2020-11-25 07:45 | W.PM.OPSUD ---
Surgery/Procedure H&P Update DATE OF PROCEDURE: November 25, 2020 DATE H&P PERFORMED: 11/25/20 PREOP DIAGNOSIS: spondylolisthesis PLANNED PROCEDURE: Operation Date: 11/25/20 07:00 Proposed Procedures p PLIF L 07/06 65751, 36867, 74669, 62465, 97726, 04149, 94484 m47.16(Not Applicable) - Nadir Arrington, DO
--- NOTE | 2020-11-25 07:46 | PM.HP ---
Providers/Chief Complaint Primary Care Provider: Brigette Newsome DO Chief Complaint: PLVANNA Camacho 07/06 94383, 20203, 59290, 26351, 76512, 209 History of Present Illness Terence Kate is a 55 year old male He describes pain, numbness to his lower extremities that starts at the knee down. He states he has been preforming stretching exercises as instructed but this causing him to have increased pain and discomfort to his legs and back. He is unsure what his current A1C is at this time but states he will be having it checked soon. Chief Complaint: post op visit. He also complains of pain to his lower extremities and right elbow Onset: DOS 06/24/20 Duration: 3 months Characteristics: burning, numbness and tingling to lower extremities, He also complains of pain to his right elbow he does have a soft raised area that is tender to touch. Severity: no pain to his neck. Location: low back pain Radiating symptoms: lower extremity pain weakness, and numbness Aggravating factors: walking, turning to the side and mornings Alleviating factors: none Neuro deficits: denies incontinence of bowel/bladder, saddle anesthesia. Prior tx: Injections are no longer providing relief. Review of Systems Narrative: General ROS: negative for weight changes, fever ENT ROS: negative for nasal congestion, drainage or bleeding, sore throat, dysphagia or ear pain Eyes: PERRL Hematological and Lymphatic ROS: negative for swollen glands or abnormal bleeding Endocrine ROS: negative for polyuria/polydpsia or new changes in weight Respiratory ROS: negative for cough, shortness of breath, or wheezing Cardiovascular ROS: negative for chest pain or dyspnea on exertion Gastrointestinal ROS: negative for reflux, abdominal pain, change in bowel habits, or black or bloody stools Musculoskeletal ROS: negative for back pain, neck pain, or joint pain or swelling except for current problem Neurological ROS: negative for TIA or stoke symptoms Skin: no rashes Eyes: Denies: photophobia Medications/Allergies Home Medications Medication Instructions Recorded Confirmed Last Taken Type acetaminophen 500 mg tablet 1,000 mg PO Q6H PRN 04/16/19 11/25/20 11/24/20 10:00 History aspirin 81 mg tablet,delayed 81 mg PO ONCE 04/16/19 11/25/20 11/22/20 History release triamcinolone acetonide 0.1 % 1 applic TOPICAL BID 04/16/19 11/19/20 06/23/20 History topical cream diabetic shoes with leg brace #1 ea 10/17/19 11/13/20 Unknown Rx terbinafine HCl 1 % topical cream 1 applic TOPICAL .1-2 times daily 02/06/20 11/19/20 06/23/20 Rx #30 gm mupirocin 2 % topical ointment 1 applic TOPICAL BID #30 g 04/23/20 11/19/20 06/21/20 Rx gabapentin 800 mg tablet 800 mg PO TID #90 tab 06/01/20 11/25/20 11/24/20 22:00 Rx nitroglycerin 0.4 mg sublingual See Rx Instructions .ROUTE 06/01/20 11/19/20 Unknown Rx tablet .COMPLEX #25 each AFO for foot drop bilaterally #1 ea 06/04/20 11/13/20 Unknown Rx Diabetic shoes with inserts #1 ea 06/04/20 11/13/20 Unknown Rx toe sleeve for second toe left #1 ea 06/04/20 11/13/20 Unknown Rx foot mometasone 50 mcg/actuation nasal 2 spray INTRANASAL DAILY #17 g 06/19/20 11/13/20 11/24/20 Rx spray AFO for foot drop bilaterally and #1 ea 07/21/20 11/13/20 Unknown Rx diabetic shoes tamsulosin 0.4 mg capsule 0.8 mg PO ONCE #180 cap 08/04/20 11/25/20 11/24/20 08:00 Rx tramadol 50 mg tablet 50 mg PO BID PRN 30 Days #60 tab 08/04/20 11/25/20 11/24/20 22:00 Rx blood sugar diagnostic #100 each 09/23/20 11/13/20 Unknown Rx blood-glucose meter #1 ea 09/23/20 11/13/20 Unknown Rx baclofen 5 mg tablet 5 mg PO TID PRN #90 tab 09/24/20 11/25/20 11/24/20 22:00 Rx amlodipine 5 mg tablet 5 mg PO ONCE 90 Days #90 tab 11/16/20 11/25/20 11/24/20 08:00 Rx budesonide-formoterol HFA 160 2 puff INHALATION BID #10.2 gm 11/16/20 11/19/20 Unknown Rx mcg-4.5 mcg/actuation aerosol inhaler finasteride 5 mg tablet 5 mg PO ONCE #30 tab 11/16/20 11/25/20 11/24/20 08:00 Rx furosemide 40 mg tablet 40 mg PO QAM #30 tab 11/16/20 11/25/20 11/24/20 08:00 Rx hydrochlorothiazide 25 mg tablet 25 mg PO ONCE #30 tab 11/16/20 11/25/20 11/24/20 08:00 Rx pantoprazole 40 mg tablet,delayed 40 mg PO ONCE #30 tab 11/16/20 11/25/20 11/24/20 08:00 Rx release potassium chloride 20 mEq 20 meq PO BID #60 tab 11/16/20 11/25/20 11/24/20 22:00 Rx tablet,extended release simvastatin 10 mg tablet 10 mg PO DAILY #30 tab 11/16/20 11/25/20 11/24/20 22:00 Rx albuterol sulfate 90 mcg/actuation 2 puff INHALATION Q6H PRN 30 Days 11/18/20 11/25/20 11/24/20 14:00 Rx aerosol inhaler #8.5 g metformin 500 mg PO DAILY 11/19/20 11/25/20 11/24/20 08:00 History Allergies Allergy/AdvReac Type Severity Reaction Status Date / Time acetaminophen [From Percocet] Allergy ALGY-Difficulty Verified 11/13/20 08:03 Breathing bupropion [From Zyban] Allergy Unknown Verified 11/13/20 08:03 duloxetine [From Cymbalta] Allergy ALGY-Difficulty Verified 11/13/20 08:03 Swallowing levofloxacin [From Levaquin] Allergy ADR-Itching Verified 11/13/20 08:03 loratadine [From Claritin] Allergy ALGY-Rash Verified 11/13/20 08:03 oxycodone [From Percocet] Allergy ALGY-Difficulty Verified 11/13/20 08:03 Breathing Sulfa (Sulfonamide Allergy ALGY-Rash Verified 11/13/20 08:03 Antibiotics) topiramate [From Topamax] Allergy ALGY-Rash Verified 11/13/20 08:03 varenicline [From Chantix] Allergy ALGY-Rash Verified 11/13/20 08:03 PFSH Acute PFSH: Medical History Lucio esophagus BPH (benign prostatic hyperplasia) Carotid stenosis, left Cervical spondylosis with myelopathy CHF (congestive heart failure) Chronic GERD Chronic otitis externa Chronic sinusitis COPD, moderate Deviated septum Dyslipidemia Dysphasia Encounter for long-term (current) use of NSAIDs Encounter for long-term opiate analgesic use Encounter for long-term opiate analgesic use Epilepsy Essential (primary) hypertension GERD (gastroesophageal reflux disease) Lumbar post-laminectomy syndrome Nasal turbinate hypertrophy Opioid contract exists Personal history of peptic ulcer disease Type 2 diabetes mellitus, without long-term current use of insulin Surgical History H/O carpal tunnel repair H/O cataract extraction H/O hernia repair History of back surgery History of cholecystectomy Family History Father Cancer LUNG Diabetes CAD (coronary artery disease) Mother Cancer STOMACH CAD (coronary artery disease) Sister Down syndrome HALF SISTER Other Parkinson disease Social History Smoking and tobacco status: current every day smoker cigarettes Packs smoked per day: 2 and smokeless tobacco Quit status (tobacco): considering quitting Alcohol intake: former Lives independently: Yes Household members: spouse History of recent travel: No Vitals/I&O/Wt Last Vital Signs Temp 98.3 F 11/25/20 07:15 Pulse 100 11/25/20 07:15 Resp 18 11/25/20 07:15 BP 168/96 11/25/20 07:15 Pulse Ox 94 11/25/20 07:15 Physical Exam Narrative: EXAM NARRATIVE: CONSTITUTIONAL: The patient is a normal appearing [] in no apparent distress. GENERAL: Patient in no acute distress. CARDIAC: Regular rate and rhythm. CHEST: Normal inspiratory effort, normal respiratory rate. ABDOMEN: Soft and nontender. SKIN: Clear, warm and intact. NEURO?PSYCH: The patient is alert and oriented to person, place and time. Sensorv /SILT Motor StrengthShoulder abduction C5 5/5Wrist extension C6 5/5Elbow extension C7 5/5Hand Scrap Crusher C8 5/5Finger abduction T15/5 Radial/ Ulnar/ Median n intact LowerSensory (SILT)Motor StrengthHin flexion L2/3Ant/inner thigh 5/5Hip adduction L2/3 5/5Knee extension L4 Lat thigh, 5/5Toe dorsiflexion L5 5/5Ankle dorsiflexion L5/ H57Ritfxrs flexion S1 5/5 DTRBleeps 2+Triceps 2+Brachioradialis 2+Patellar 2+Achilles 2+ MUSCULOSKELETAL: [] UPPEREXTREMITIES: The patient had full active ROM in fingers, wrist, elbow, and shoulder. The patient demonstrated ability to fully flex/extend/abduct/adduct fingers, make ok sign, cross 2nd/3rd digits, extend 1st digit fully.. Radial pulse 2+, CR<2 seconds. LOWER EXTREMITIES: Pt has full, active ROM of toes, ankle, knee, and hip. Dorsalis pedis/posterior tibialis pulses 2+, CR<2 seconds. SPINE: Skin warm, dry, intact. A&P Assessment and plan (1) Lumbar stenosis with neurogenic claudication: PLIF Status: Acute Attestations Medical Necessity Statement*: failed conservative tx Coding Level of Care Code Acute Optical Design Engineer for Chg Fwd Diagnoses Lumbar stenosis with neurogenic claudication M48.062
--- NOTE | 2020-11-25 09:19 | P.ANESUD_ITS ---
Pre-Anesthetic Update Pre-Anesthetic Assessment: Date of Surgery/Procedure: 11/25/20 Preop Nereida gnosis: spondylolisthesis Proposed Procedure: Operation Date: 11/25/20 07:00 Proposed Procedures p PLIF L 07/06 73962, 87275, 04731, 62080, 84517, 56955, 89343 m47.16(Not Applicable) - Nadir Arrington, DO Any changes to Pre-Anesthetic Assessment?: No Last Intake: Intake Last Liquid Date 11/24/20 Last Liquid Time 23:50 Last Solid Date 11/24/20 Last Solid Time 22:00 Labs Last 48hrs: Laboratory Results - last 48 hr 11/25/20 07:25 POC Glucose 114 H Vitals: Temperature 98.3 F 11/25/20 07:15 Temperature Source Oral 11/25/20 07:15 Pulse Rate 100 11/25/20 07:15 Respiratory Rate 18 11/25/20 07:15 Blood Pressure 168/96 11/25/20 07:15 Blood Pressure Sara n 120 11/25/20 07:15 Pulse Oximetry 94 11/25/20 07:15 Oxygen Delivery Me thod 11/25/20 07:15 Exam: Pre-Anes Outpt Exam: alert, oriented x 3, clear to auscultation bilate rally and regular rate & rhythm Cardiac Studies: No Data to Display
[2020-11-25] MEDS: vancomycin 1,000 MG SDV 1000 MG (11:25)
[2020-11-25] MEDS: heparin, porcine 1,000 unit/mL INJ 10 mL 10000 UNIT IRRIGATION (11:26)
--- NOTE | 2020-11-25 12:05 | PM.OP ---
Operative Report Date of procedure: November 25, 2020 Pre-op Diagnosis: spondylolisthesis L4/5 Post-op diagnosis: same Procedure Done: 1. L4/5 Interbody fusion with posterolateral fusion 2. Instrumentation L4/5 3. Cage at L4/5 4. Laminectomy L4 5. use of autograft from same incision 6. allograft 7. Bone marrow aspirate from right iliac crest Right 8. Use of Computer navigation/ stereotactic for spine Surgeon: Nadir Arrington Anesthesia: General Estimated blood loss (mL): 200 Condition: stable Disposition: PACU Procedure: Patient is brought to the operative suite. After undergoing anesthesia, the patient had neuro monitoring attached. Patient was then placed in the prone position on the Tima table. All areas of impingement were well-padded. Patient was then prepped and draped in the normal sterile fashion. Skin incision was then made over the L4/5 space. Subperiosteal dissection was made out to the transverse processes of L4 and L5. Once the exposure was complete attention was then brought to placing the pedicle screws. Prior to placing the pedicle screws the the fiducial was placed in the right iliac crest. This was done by placing 2 pins. At and then attaching the fiducial. Information was linked into the computer. Then the C-arm was used to do the spin. And then this information was loaded in the computer in order to facilitate placing the pedicle screws through navigation. Prior to placing the pedicle screws the [employer] bone marrow aspirate kit was used to aspirate bone marrow aspirate from right iliac crest. This was done by using the sharp probe to open up the bone. Aspiration was performed and then the blunt probe was then used to dissect down to through the bone tunnel. An aspirating well drawn back a millimeter approximately 20 cc of bone marrow aspirate was used. And mixed with the allograft and autograft bone that will be used. The technique for placing the pedicle screws was to use a drill followed by the gearshift probe linked to navigation. Followed by the ball probe to feel the superior inferior medial lateral de los santos of the pedicles. Then placement of the screws. Was done at each pedicle. Screws were placed at L4 bilaterally and L5 using the navigation. Next attention was brought to performing the laminectomy ofL4. This was done using the high-speed bur Kerrisons and curettes. Once the lamina was removed and then attention was brought to performing a partial facetectomy on the contralateral side. This was done again using the high-speed bur curettes and Kerrisons. The ligamentum flavum was taken down bilaterally from L4 to L5. Attention was then brought to the facet on the ipsilateral side. The facet was taken down. The L5 nerve was decompressed as it passed around the L5 pedicle. The laminectomy was done for purposes of decompressing the nerve as well as placement of the cage. The L4 nerve was identified as it traversed through the L4/5 foramen. The thecal sac was identified and retracted. The L4/5 disc base was identified. Using a knife the disc base was opened. And then sequential morgan were placed. The first shaver was a 6 and the last shaver was a 8. Using a pituitary and down going curette the endplates were scraped and disc material was removed from the space. Once adequate decompression of the disc base was felt to be had. Osteoamp sponge was packed into the anterior aspect of the disc base. Then a size 8 cage from [facility] was placed after packing osteoamp into the cage. While placing the cage the thecal sac and L5 nerve was protected. C arm was used to ensure that the cages placed in the appropriate position. Attention was then brought to attaching the rods to the screws placed in the L4 and L5 bilaterally. Caps were torqued into position. Locking the construct in place. Wound was copiously irrigated and then attention was brought to decorticating the facets and transverse processes laterally. Bone that was taken down from the lamina was used along with osteoamp fibers and sponges were packed into the lateral gutters along the facet joints. This was done bilaterally. Wound was then closed in a layered fashion starting with the thoracolumbar fascia. 0-stratafix was used the sub cutaneous tissue was closed with 2-0 vicryl and 2-O stratafixskin with 3-0 nylon. Silvalon steril dressing was applied. Patient was then placed in the supine position. The endotracheal tube was removed and patient was transferred to the PACU in stable condition.
--- NOTE | 2020-11-25 12:31 | SUR.PHASEI ---
ORAL AIRWAY REMOVED
[2020-11-25] MEDS: fentaNYL 50 mcg/mL INJ 2mL IVP (14:07)
--- NOTE | 2020-11-25 14:39 | P.CONIM_ITS ---
Providers/Reason For Consult Consulting Physician/Specialty*: Orthopedics Reason for Consult*: Chronic medical problems Attending Physician: Nadir Arrington DO Primary Care Provider: Brigette Newsome DO History of Present Illness History of Present Illness Terence Kate is a 55 year old male with a past medical history of noninsulin- dependent type 2 diabetes mellitus, COPD, hypertension, hyperlipidemia, GERD, left carotid artery disease, diastolic CHF who presents [facility] for L4/[address] Arrington. Hospitalist team was consulted for medical management of chronic medical problems. Patient tells me that right now he is having some back pain, but overall he is doing okay, he has type 2 diabetes, is well controlled, he continues to smoke but is trying to quit, no fevers, no cough, has not received the Covid vaccine. Review of Systems Const: Denies: fever(s), chills, fatigue or malaise Eyes: Denies: change in vision or blurry vision ENMT: Denies: nasal congestion Resp: Denies: dyspnea, productive cough, non-productive cough or wheezing GI: Denies: abdominal pain, nausea, vomiting, hematemesis, diarrhea or con stipation : Denies: difficulty urinating or dysuria Skin/Breast: Denies: rash Neuro: Denies: headache(s), dizziness or vertigo Endo: Denies: polyuria or polydipsia Meds/Allergies Home Medications and Allergies Home Medications Medication Instructions Recorded Confirmed Last Taken Type acetaminophen 500 mg tablet 1,000 mg PO Q6H PRN 04/16/19 11/25/20 11/24/20 10:00 History aspirin 81 mg tablet,delayed 81 mg PO ONCE 04/16/19 11/25/20 11/22/20 History release triamcinolone acetonide 0.1 % 1 applic TOPICAL BID 04/16/19 11/19/20 06/23/20 History topical cream diabetic shoes with leg brace #1 ea 10/17/19 11/13/20 Unknown Rx terbinafine HCl 1 % topical cream 1 applic TOPICAL .1-2 times daily 02/06/20 11/19/20 06/23/20 Rx #30 gm mupirocin 2 % topical ointment 1 applic TOPICAL BID #30 g 04/23/20 11/19/20 06/21/20 Rx gabapentin 800 mg tablet 800 mg PO TID #90 tab 06/01/20 11/25/20 11/24/20 22:00 Rx nitroglycerin 0.4 mg sublingual See Rx Instructions .ROUTE 06/01/20 11/19/20 Unknown Rx tablet .COMPLEX #25 each AFO for foot drop bilaterally #1 ea 06/04/20 11/13/20 Unknown Rx Diabetic shoes with inserts #1 ea 06/04/20 11/13/20 Unknown Rx toe sleeve for second toe left #1 ea 06/04/20 11/13/20 Unknown Rx foot mometasone 50 mcg/actuation nasal 2 spray INTRANASAL DAILY #17 g 06/19/20 11/13/20 11/24/20 Rx spray AFO for foot drop bilaterally and #1 ea 07/21/20 11/13/20 Unknown Rx diabetic shoes tamsulosin 0.4 mg capsule 0.8 mg PO ONCE #180 cap 08/04/20 11/25/20 11/24/20 08:00 Rx tramadol 50 mg tablet 50 mg PO BID PRN 30 Days #60 tab 08/04/20 11/25/20 11/24/20 22:00 Rx blood sugar diagnostic #100 each 09/23/20 11/13/20 Unknown Rx blood-glucose meter #1 ea 09/23/20 11/13/20 Unknown Rx baclofen 5 mg tablet 5 mg PO TID PRN #90 tab 09/24/20 11/25/20 11/24/20 22:00 Rx amlodipine 5 mg tablet 5 mg PO ONCE 90 Days #90 tab 11/16/20 11/25/20 11/24/20 08:00 Rx budesonide-formoterol HFA 160 2 puff INHALATION BID #10.2 gm 11/16/20 11/19/20 Unknown Rx mcg-4.5 mcg/actuation aerosol inhaler finasteride 5 mg tablet 5 mg PO ONCE #30 tab 11/16/20 11/25/20 11/24/20 08:00 Rx furosemide 40 mg tablet 40 mg PO QAM #30 tab 11/16/20 11/25/20 11/24/20 08:00 Rx hydrochlorothiazide 25 mg tablet 25 mg PO ONCE #30 tab 11/16/20 11/25/20 11/24/20 08:00 Rx pantoprazole 40 mg tablet,delayed 40 mg PO ONCE #30 tab 11/16/20 11/25/20 11/24/20 08:00 Rx release potassium chloride 20 mEq 20 meq PO BID #60 tab 11/16/20 11/25/20 11/24/20 22:00 Rx tablet,extended release simvastatin 10 mg tablet 10 mg PO DAILY #30 tab 11/16/20 11/25/20 11/24/20 22:00 Rx albuterol sulfate 90 mcg/actuation 2 puff INHALATION Q6H PRN 30 Days 11/18/20 11/25/20 11/24/20 14:00 Rx aerosol inhaler #8.5 g metformin 500 mg PO DAILY 11/19/20 11/25/20 11/24/20 08:00 History Allergies Allergy/AdvReac Type Severity Reaction Status Date / Time acetaminophen [From Percocet] Allergy ALGY-Difficulty Verified 11/13/20 08:03 Breathing bupropion [From Zyban] Allergy Unknown Verified 11/13/20 08:03 duloxetine [From Cymbalta] Allergy ALGY-Difficulty Verified 11/13/20 08:03 Swallowing levofloxacin [From Levaquin] Allergy ADR-Itching Verified 11/13/20 08:03 loratadine [From Claritin] Allergy ALGY-Rash Verified 11/13/20 08:03 oxycodone [From Percocet] Allergy ALGY-Difficulty Verified 11/13/20 08:03 Breathing Sulfa (Sulfonamide Allergy ALGY-Rash Verified 11/13/20 08:03 Antibiotics) topiramate [From Topamax] Allergy ALGY-Rash Verified 11/13/20 08:03 varenicline [From Chantix] Allergy ALGY-Rash Verified 11/13/20 08:03 Current Medications Current Medications Generic Name Dose Route Start Last Admin Trade Name Freq PRN Reason Stop Dose Admin Fentanyl 50 mcg 11/25/20 09:21 11/25/20 14:07 Fentanyl 50 Mcg/Ml Inj 2ml IVP 11/26/20 09:21 50 mcg Q5M PRN Administration Pain level 6-10 PACU Phase I Sodium Chloride 1,000 mls @ 30 mls/hr 11/25/20 07:15 11/25/20 07:41 Sodium Chloride 0.9% IV 11/26/20 07:14 30 mls/hr .Q24H ALEX Administration PFSH Acute PFSH: Medical History (Updated 11/25/20 @ 14:44 by Chris Blanchard MD) Lucio esophagus BPH (benign prostatic hyperplasia) Carotid stenosis, left Cervical spondylosis with myelopathy CHF (congestive heart failure) Chronic GERD Chronic otitis externa Chronic sinusitis COPD, moderate Deviated septum Dyslipidemia Dysphasia Encounter for long-term (current) use of NSAIDs Encounter for long-term opiate analgesic use Encounter for long-term opiate analgesic use Epilepsy Essential (primary) hypertension GERD (gastroesophageal reflux disease) Lumbar post-laminectomy syndrome Nasal turbinate hypertrophy Opioid contract exists Personal history of peptic ulcer disease Type 2 diabetes mellitus, without long-term current use of insulin Surgical History H/O carpal tunnel repair H/O cataract extraction H/O hernia repair History of back surgery History of cholecystectomy Family History Father Cancer LUNG Diabetes CAD (coronary artery disease) Mother Cancer STOMACH CAD (coronary artery disease) Sister Down syndrome HALF SISTER Other Parkinson disease Social History Smoking and tobacco status: current every day smoker cigarettes Packs smoked per day: 2 and smokeless tobacco Quit status (tobacco): considering quitting Alcohol intake: former Lives independently: Yes Household members: spouse History of recent travel: No Vitals/I&O/Wt Last Vital Signs Temp 98.1 F 11/25/20 12:11 Pulse 95 11/25/20 13:40 Resp 17 11/25/20 14:07 BP 174/129 11/25/20 13:40 Pulse Ox 95 11/25/20 14:07 11/24/20 11/25/20 11/25/20 22:59 06:59 14:59 Intake Total 1360 / 1360 Output Total 200 / 200 Balance 1160 / 1160 Physical Exam Const: COMMON NORMALS: no acute distress and patient oriented x3 HENMT: COMMON NORMALS: normocephalic HEAD & SCALP: normocephalic Eye: COMMON NORMALS: Equal, round and reactive pupils present and EOMs intact bilaterally GENERAL EYE: appearance normal, both eyes and all related structures PUPIL: Yes Equal, round and reactive pupils present Neck/C-Spine: COMMON NORMALS: full ROM, no lymphadenopathy and Thyroid normal THYROID: Thyroid normal Lymph: LYMPHATIC: no lymphadenopathy noted Resp: COMMON NORMALS: normal respiratory effort, No retractions, No use of accessory muscles and clear to auscultation bilaterally AUSCULTATION: clear to auscultation bilaterally Cardio: COMMON NORMALS: regular rate, regular rhythm, S1 normal heart sound present, S2 normal heart sound present, No gallops present (Cardio), No clicks present (Cardio) and No murmurs present (Cardio) RATE: regular rate RHYTHM: regular rhythm HEART SOUNDS: S1 normal heart sound present and S2 normal heart sound present GI: COMMON NORMALS: Normal to inspection, nondistended, normoactive bowel sounds present, Soft to palpation and non-tender PALPATION: Yes Soft to palpation Extremity: COMMON NORMALS: normal to inspection, full ROM and no pedal edema Neuro: COMMON NORMALS: patient oriented x3, CN's II-XII intact bilaterally, moves all extremities and no focal motor deficits Psych: COMMON NORMALS: mental status grossly normal Urinary Catheter Management^: Flynn: Cath Placed During This Visit: yes, but has since been removed by the nurse Urinary Catheter Date of Insertion: 11/25/20 Urinary Catheter Time of Insertion: 08:41 Date Urinary Catheter Removed: 11/25/20 Time Urinary Catheter Discontinued: 11:32 A&P Assessment and plan (1) Lumbar stenosis with neurogenic claudication: Status post 1. L4/5 Interbody fusion with posterolateral fusion 2. Instrumentation L4/5 3. Cage at L4/5 4. Laminectomy L4 5. use of autograft from same incision 6. allograft 7. Bone marrow aspirate from right iliac crest Right 8. Use of Computer navigation/ stereotactic for spine By Dr. Arrington Pain control and anticoagulation as per orthopedic service PT OT Type 2 diabetes mellitus, for now insulin sliding scale, check A1c Hypertension, monitor blood pressures COPD, monitor functional requirements CHF, monitor for fluid overload Monitor for postoperative fevers, nausea, vomiting, pain Full code Status: Acute (2) Leg edema: Status: Acute (3) GERD (gastroesophageal reflux disease): Status: Acute (4) Type 2 diabetes mellitus, without long-term current use of insulin: Status: Acute Qualifiers: Diabetes mellitus complication status: without complication Qualified Code(s): E11.9 - Type 2 diabetes mellitus without complications (5) Chronic low back pain: Status: Acute (6) COPD, moderate: Status: Acute (7) Nicotine dependence, cigarettes, with unspecified nicotine-induced disorders: Status: Chronic (8) Dyslipidemia: Status: Chronic (9) Essential (primary) hypertension: Status: Chronic (10) Carotid stenosis, left: Status: Acute (11) CHF (congestive heart failure): Status: Chronic Qualifiers: Heart failure type: diastolic Heart failure chronicity: chronic Qualified Code(s): I50.32 - Chronic diastolic (congestive) heart failure Coding Level of Care Code Acute [facility] Fwd Diagnoses Lumbar stenosis with neurogenic claudication M48.062 Leg edema R60.0 GERD (gastroesophageal reflux disease) K21.9 Type 2 diabetes mellitus, without long-term current use of insulin E11.9 Diabetes mellitus complication status: without complication Chronic low back pain M54.5; G89.29 COPD, moderate J44.9 Nicotine dependence, cigarettes, with unspecified nicotine-induced disorders F17.219 Dyslipidemia E78.5 Essential (primary) hypertension I10 Carotid stenosis, left I65.22 CHF (congestive heart failure) I50.32 Heart failure type: diastolic Heart failure chronicity: chronic
[2020-11-25] MEDS: HYDROcodone-acetaminophen 5-325 mg Tablet 2 TAB PO (15:29)
--- NOTE | 2020-11-25 16:12 | SUR.PHASEI ---
50ml blood removed from hemovac
--- NOTE | 2020-11-25 16:12 | SUR.PHASEI ---
Dressing to back is saturated, Dr Arrington was advised. Dr Arrington said place an abd on top of dressing. Abd is now saturated, will replace dressing.
--- NOTE | 2020-11-25 17:45 | ANE.PACU2 ---
Inpatient post-anesthesia follow up: Airway intact: Yes Vital signs: Temperature 98.2 F Pulse Rate 95 Respiratory Rate 17 Blood Pressure 147/94 Pulse Oximetry 100 Oxygen Delivery Me thod Room Air Oxygen Flow Rate 8 Fraction of Inspir ed Oxygen Hydration adequate: Yes Nausea and vomiting: No Pain level: 3 Mental status: Baseline
[2020-11-25] MEDS: lactated ringers 1,000 ML 90 ML IV (18:22)
[2020-11-25] MEDS: docusate sodium 100 mg Capsule PO (18:29)
[2020-11-25] MEDS: potassium chloride ER 20 mEq Tablet PO (18:30)
[2020-11-25] MEDS: mupirocin oint 22 gm 1 APPLIC TOPICAL (18:30)
[2020-11-25] MEDS: triamcinolone 0.1% cream 15 gm 1 APPLIC TOPICAL (18:35)
[2020-11-25] MEDS: terbinafine 1% Cream 15 gm 1 APPLIC TOPICAL (18:36)
[2020-11-25 19:11] LABS: Glucose Point of Care 189 mg/dL (70-110)
[2020-11-25] MEDS: baclofen 10 mg Tablet 5 MG PO (21:13)
[2020-11-25] MEDS: gabapentin 400 mg Capsule 800 MG PO (21:13)
[2020-11-25] MEDS: HYDROcodone-acetaminophen 5-325 mg Tablet PO (21:13)
[2020-11-25 21:19] LABS: Glucose Point of Care 197 mg/dL (70-110)
[2020-11-26] VITALS: BP 142/76; PULSE 88; RESP 18; TEMP 37.3; O2SAT 94
[2020-11-26] MEDS: HYDROcodone-acetaminophen 5-325 mg Tablet PO (03:09)
[2020-11-26 03:49] VITALS: BP 136/66; PULSE 96; RESP 16; TEMP 37.3; O2SAT 99
[2020-11-26 04:04] LABS: Basophils % 0.2 %; Eosinophils # 0.1 10^3/uL (0.0-0.8); Eosinophils % 0.4 %; Hematocrit 44.4 % (42.0-52.0); Hemoglobin 14.3 g/dL (11.7-16.6); Lymphocytes # 1.6 10^3/uL (0.8-4.8); Lymphocytes % 11.2 %; Mean Corpuscular HGB Conc 32.2 g/dL (30.0-36.0); Mean Corpuscular Hemoglobin 31.8 pg (28.0-34.0); Mean Corpuscular Volume 98.7 fl (80-94); Mean Platelet Volume 9.5 fL (7.4-10.4); Monocytes # 0.8 10^3/uL (0.2-0.9); Monocytes % 5.6 %; Neutrophils # 11.41 10^3/uL (1.8-7.7); Nucleated Red Blood Cells % 0 %; Platelet Count 243 10^3/cmm (130-400); Red Cell Distribution Width 13.5 % (12.1-15.1); White Blood Count 13.9 10^3/uL (4.0-10.0)
[2020-11-26 04:44] LABS: Alanine Aminotransferase 20 U/L (0-41); Albumin Level 3.4 g/dL (3.5-5.2); Alkaline Phosphatase 68 IU/L (40-130); Anion Gap 13.9 (5-19); Aspartate Amino Transferase 35 U/L (0-40); Blood Urea Nitrogen 18 mg/dL (6-20); Calcium 8.4 mg/dL (8.5-10.5); Carbon Dioxide 25 mmol/L (22-29); Chloride 104 mmol/L (98-107); Globulin 2.6 g/dL (1.3-4.6); Glomerular Filtration Rate 87.6 mL/min (90-130); Glucose 157 mg/dL (65-115); Magnesium 1.9 mg/dL (1.7-2.3); NT Pro B Type Natriuretic Pept 73 pg/mL (0-125); Osmolality Calculated 293 mOsm/kg (285-295); Phosphorus 2.8 mg/dL (2.5-4.5); Potassium 3.9 mmol/L (3.5-5.1); Sodium 139 mmol/L (136-145); Total Bilirubin 0.2 mg/dL (0.15-1.2)
[2020-11-26] MEDS: FUROsemide 40 mg Tablet PO (06:31)
[2020-11-26] MEDS: ketorolac 30 mg/mL INJ IVP (06:31)
[2020-11-26] MEDS: enoxaparin 40 mg/0.4 mL Syringe SUBCUT (06:31)
[2020-11-26] MEDS: acetaminophen 325 mg Tablet 650 MG PO (06:31)
[2020-11-26] MEDS: lactated ringers 1,000 ML 90 ML IV (06:33)
[2020-11-26 06:44] LABS: Glucose Point of Care 126 mg/dL (70-110)
[2020-11-26 08:00] VITALS: BP 155/85; PULSE 78; RESP 18; TEMP 36.9; O2SAT 98
[2020-11-26 08:15] VITALS: PULSE 88; RESP 16; O2SAT 96
--- NOTE | 2020-11-26 08:35 | PM.DCS ---
Discharge Providers Date of Admission: 11/25/20 16:33 Date of Discharge: November 26, 2020 Attending Provider at Admission: Nadir Arrington DO Attending Provider at Discharge: Nadir Arrington DO Primary Care Provider: Brigette Newsome DO Diagnoses at Discharge Discharge Diagnosis (1) Lumbar stenosis with neurogenic claudication: Status: Acute (2) Leg edema: Status: Acute (3) GERD (gastroesophageal reflux disease): Status: Acute (4) Type 2 diabetes mellitus, without long-term current use of insulin: Status: Acute Qualifiers: Diabetes mellitus complication status: without complication Qualified Code(s): E11.9 - Type 2 diabetes mellitus without complications (5) Chronic low back pain: Status: Acute (6) COPD, moderate: Status: Acute (7) Nicotine dependence, cigarettes, with unspecified nicotine-induced disorders: Status: Chronic (8) Dyslipidemia: Status: Chronic (9) Essential (primary) hypertension: Status: Chronic (10) Carotid stenosis, left: Status: Acute (11) CHF (congestive heart failure): Status: Chronic Qualifiers: Heart failure type: diastolic Heart failure chronicity: chronic Qualified Code(s): I50.32 - Chronic diastolic (congestive) heart failure Reason for Visit Reason for Visit: PLIF L 07/06 [id number], [id number], 22808, 21476, 91791, 2092 Hospital Course Hospital Course Hospital course was uneventful he did pull his drain out last night. He is admitted on 11/25/2020 after a 1 level plif. And be discharged 11/26/2020. Physical Exam Narrative: EXAM NARRATIVE: dressing clean dry intact Urinary Catheter Management^: Flynn: Cath Placed During This Visit: yes, but has since been removed by the nurse Urinary Catheter Date of Insertion: 11/25/20 Urinary Catheter Time of Insertion: 08:41 Date Urinary Catheter Removed: 11/25/20 Time Urinary Catheter Discontinued: 11:32 Discharge Data Data Completed and Pending: Pending at discharge Category Date Time Status C-arm Fluoroscopy 78165 Routine Exams 11/25/20 07:04 Ordered Complete Blood Co unt w/Auto AM LABS Lab 11/27/20 04:00 Ordered Complete Blood Co unt w/Auto AM LABS Lab 11/28/20 04:00 Ordered Comprehensive Met abolic Panel AM LA BS Lab 11/27/20 04:00 Ordered Comprehensive Met abolic Panel AM LA BS Lab 11/28/20 04:00 Ordered Hemoglobin A1C Ro utine Lab 11/25/20 14:37 Uncollected Magnesium AM LABS Lab 11/27/20 04:00 Ordered Magnesium AM LABS Lab 11/28/20 04:00 Ordered NT Pro B Type Thania riuretic Pept QAM Lab 11/27/20 06:00 Ordered NT Pro B Type Thania riuretic Pept QAM Lab 11/28/20 06:00 Ordered Phosphorus AM LAB S Lab 11/27/20 04:00 Ordered Phosphorus AM LAB S Lab 11/28/20 04:00 Ordered Thyroid Stimulati ng Hormone Routine Lab 11/25/20 14:37 Uncollected Labs from last 24 hours 11/26/20 11/26/20 11/26/20 06:35 02:50 02:50 WBC 13.9 H RBC 4.50 Hgb 14.3 Hct 44.4 MCV 98.7 H MCH 31.8 MCHC 32.2 RDW 13.5 Plt Count 243 MPV 9.5 Neut % (Auto) 82.0 Lymph % (Auto) 11.2 Allen % (Auto) 5.6 Eos % (Auto) 0.4 Baso % (Auto) 0.2 Neut # (Auto) 11.41 H Lymph # (Auto) 1.6 Allen # (Auto) 0.8 Eos # (Auto) 0.1 Baso # (Auto) 0.0 Nucleated RBC % (a uto) 0 Nucleated RBCs # 0.0 Sodium 139 Potassium 3.9 Chloride 104 Carbon Dioxide 25 Anion Gap 13.9 BUN 18 Creatinine 0.9 GFR Calculation 87.6 L Glucose 157 H POC Glucose 126 H Calculated Osmolal ity 293 Calcium 8.4 L Phosphorus 2.8 Magnesium 1.9 Total Bilirubin 0.2 AST 35 ALT 20 Alkaline Phosphata se 68 NT-Pro-B Natriuret Pep 73 Total Protein 6.0 L Albumin 3.4 L Globulin 2.6 11/25/20 11/25/20 21:10 19:08 WBC RBC Hgb Hct MCV MCH MCHC RDW Plt Count MPV Neut % (Auto) Lymph % (Auto) Allen % (Auto) Eos % (Auto) Baso % (Auto) Neut # (Auto) Lymph # (Auto) Allen # (Auto) Eos # (Auto) Baso # (Auto) Nucleated RBC % (a uto) Nucleated RBCs # Sodium Potassium Chloride Carbon Dioxide Anion Gap BUN Creatinine GFR Calculation Glucose POC Glucose 197 H 189 H Calculated Osmolal ity Calcium Phosphorus Magnesium Total Bilirubin AST ALT Alkaline Phosphata se NT-Pro-B Natriuret Pep Total Protein Albumin Globulin Vitals: Last Vital Signs Temp 99.1 F 11/26/20 03:49 Pulse 96 11/26/20 03:49 Resp 16 11/26/20 03:49 BP 136/66 11/26/20 03:49 Pulse Ox 99 11/26/20 03:49 Discharge Plan Discharge Patient Disposition: Home Condition: Stable Prescriptions: New hydrocodone-acetaminophen 5-325 mg tablet 1 - 2 tab PO .Q4-6H Qty: 40 RF: 0 Continued aspirin 81 mg tablet,delayed release (DR/EC) 81 mg PO ONCE RF: 0 triamcinolone acetonide 0.1 % cream 1 applic TOPICAL BID RF: 0 acetaminophen [Tylenol Extra Strength] 500 mg tablet 1,000 mg PO Q6H PRN (Reason: Pain) RF: 0 (DME) diabetic shoes with leg brace See Rx Instructions .Route .MEDSUPPLY Qty: 1 RF: 0 mupirocin 2 % ointment 1 applic topical BID Qty: 30 RF: 0 tramadol 50 mg tablet 50 mg PO BID PRN (Reason: pain) 30 Days Qty: 60 RF: 2 mometasone [Nasonex] 50 mcg/actuation spray,non-aerosol 2 spray intranasal DAILY Qty: 17 RF: 0 (DME) AFO for foot drop bilaterally See Rx Instructions .Route .MEDSUPPLY Qty: 1 RF: 0 (DME) Diabetic shoes with inserts See Rx Instructions .Route .MEDSUPPLY Qty: 1 RF: 0 (DME) toe sleeve for second toe left foot See Rx Instructions .Route .MEDSUPPLY Qty: 1 RF: 0 (DME) blood-glucose meter [OneTouch Ultra2 Meter] Misc See Rx Instructions .Route Qty: 1 RF: 0 (DME) AFO for foot drop bilaterally and diabetic shoes See Rx Instructions .Route .MEDSUPPLY Qty: 1 RF: 0 terbinafine HCl 1 % cream 1 applic TOPICAL .1-2 times daily Qty: 30 RF: 0 gabapentin 800 mg tablet 800 mg PO TID Qty: 90 RF: 5 nitroglycerin 0.4 mg tablet, sublingual See Rx Instructions .ROUTE .COMPLEX Qty: 25 RF: 1 tamsulosin [Flomax] 0.4 mg capsule 0.8 mg PO ONCE Qty: 180 RF: 1 (DME) OneTouch Ultra Blue Test Strip Strip See Rx Instructions .ROUTE .MEDSUPPLY Qty: 100 RF: 5 baclofen 5 mg tablet 5 mg PO TID PRN (Reason: muscle spasms) Qty: 90 RF: 5 amlodipine 5 mg tablet 5 mg PO ONCE 90 Days Qty: 90 RF: 1 potassium chloride 20 mEq tablet extended release 20 meq PO BID Qty: 60 RF: 5 furosemide 40 mg tablet 40 mg PO QAM Qty: 30 RF: 5 pantoprazole 40 mg tablet,delayed release (DR/EC) 40 mg PO ONCE Qty: 30 RF: 5 finasteride 5 mg tablet 5 mg PO ONCE Qty: 30 RF: 5 Symbicort 160-4.5 mcg/actuation HFA aerosol inhaler 2 puff INHALATION BID Qty: 10.2 RF: 5 hydrochlorothiazide 25 mg tablet 25 mg PO ONCE Qty: 30 RF: 5 simvastatin 10 mg tablet 10 mg PO DAILY Qty: 30 RF: 5 albuterol sulfate [ProAir HFA] 90 mcg/actuation HFA aerosol inhaler 2 puff INHALATION Q6H PRN (Reason: shortness of breath or wheezing) 30 Days Qty: 8.5 RF: 5 metformin 500 mg tablet 500 mg PO DAILY RF: 0 Discharge Orders: Discharge Order (Routine); Ordered 11/26/20 Ordered By: Nadir Arrington Discharge Diet: Advance as tolerated Discharge Activity: Limit activity as instructed Patient Instructions: Opioid Safety Activity Restrictions/Additional Instructions: Thank you for [facility] for your care! The following is a list of instructions, from your provider, to follow upon your discharge to ensure you have the optimal recovery from your recent injury orsurgery. Follow-up care is a gama part of your treatment and safety. Be sure to make and go to all appointments, and call your doctor if you are having problems. If you do not already have a follow-up appointment made, call Dr. Arrington office in the next 1-3 days to make follow up appointment for 1 weeks at [phone]. It is also a good idea to know your test results and keep a list of the medicines you take. Medications will be prescribed for you at your provider's discretion. These medications are to be used as instructed; if they are taken more often that prescribed they will not be refilled early and in most cases will not be refilled at all. > When a refill is needed,you should contact ryne hoyt 2-3 business days before your prescription runs out. Medications will NOT be refilled by registration officer providers after hours! > Many pain medications contain Tylenol (Acetaminophen). Do not consume more than 4,000 mg of Tylenol per day in total with any combination ofmedications. > Pain medications can cause constipation. Please use an over the counter stool softener as directed, while taking pain medications. Consulty our local pharmacist with questions or recommendations on stool softeners. If constipation persists, contact our office or your primary care provider. > While under our care,you are not to receive pain medications or other controlled substances from any other provider unless our office is notified and approves. Any attempts to do so will result in refusal to prescribe any further pain medications and possible dismissal from our practice. ? Keep dressing on at all times ? Walking is essential for the healing process after surgery. We would like you to slowly advance your walking. This should be done on relatively flat clear ground (inside or out) or can be done on a treadmill. Remember this goal does not have to happen all at once, slowly increase your distance and duration. This can be broken into more more than one walk per day as tolerated. Patients who walk as directed after surgery rarely require Physical Therapy. In the unlikely event this issue arises your provider will direct hospital staff to make the appropriate arrangements. ? No lifting over 5 pounds {a gallon of milk) or bending/twisting until further notice. Each of these activities places an unnecessary amount of stress onto the body and can impede the delicate healing process. > Instead of bending at the waist, keep your back straight and bend at the knees. > Instead of twisting your torso, keep your back straight and turn your entire body with your feet. ? You may sleep in any position which makes you comfortable. Many patients find comfort sleeping in a reclining chair. It is not abnormal to have difficulty sleeping for the first several weeks following your surgery. We recommend trying Benadry! or Tylenol PM as directed to help with your sleeping difficulties. Both medications are over the counter and available withoutprescription. ? NO SMOKING!!! Smoking dramatically increases the probability of developing postoperative wound infections. ? Common complaints after lumbar and/or thoracic spine surgery include, but are not limited to: numbness and/or tingling in the legs, pain around the incision and surrounding tissues, muscle spasms, or stiffness of the middle to low back. Contact our office if these symptoms persist or if an acute change occurs. ? No driving for the first 3-5days, and not while taking narcotics [] until seen at your follow-up appointment and cleared. There are no restrictions for riding on short trips, however if you take a longer trip, arrangements should be made to make regular stops to get out of the vehicle and stretch . ? Swelling is an unfortunate event that will take place with any surgery and is the primary source of your postoperative discomfort. While walking and regular approved activities helps control inflammation, there are additional steps you can take to minimizeswelling. > Place ice over the surgical site and surrounding tissue for twenty minutes, followed by applying a low/medium heat (heating pad) for an additional twenty minutes every 1-2 hours as needed for painrelief. > You may use of over the counter anti-inflammatory medications (Ibuprofen, Motrin, Aleve, Advil, etc) as directed on the package label. These types of medicines wm significantly reduce the amount of discomfort you experience after surgery from swelling. It should be noted that if you have and allergy to any of these medications, or a history of ulcers or kidney disease you should consult you primary care provider prior to starting these medications. Discharge Attestations Time Spent in Discharge Care*: less than 30 min Quality Metrics Clinical Quality Measures During this hospital stay, did patient experience: None Coding Level of Care Code Acute [facility] note Diagnoses Lumbar stenosis with neurogenic claudication M48.062 Leg edema R60.0 GERD (gastroesophageal reflux disease) K21.9 Type 2 diabetes mellitus, without long-term current use of insulin E11.9 Diabetes mellitus complication status: without complication Chronic low back pain M54.5; G89.29 COPD, moderate J44.9 Nicotine dependence, cigarettes, with unspecified nicotine-induced disorders F17.219 Dyslipidemia E78.5 Essential (primary) hypertension I10 Carotid stenosis, left I65.22 CHF (congestive heart failure) I50.32 Heart failure type: diastolic Heart failure chronicity: chronic
[2020-11-26] MEDS: finasteride 5 mg Tablet PO (09:57)
[2020-11-26] MEDS: pantoprazole DR 40 mg Tablet PO (09:57)
[2020-11-26] MEDS: potassium chloride ER 20 mEq Tablet PO (09:57)
[2020-11-26] MEDS: docusate sodium 100 mg Capsule PO (09:57)
[2020-11-26] MEDS: hydroCHLOROthiazide 25 mg Tablet PO (09:57)
[2020-11-26] MEDS: gabapentin 400 mg Capsule 800 MG PO (09:58)
[2020-11-26] MEDS: atorvastatin 40 mg Tablet 20 MG PO (09:58)
[2020-11-26] MEDS: tamsulosin 0.4 mg Capsule 0.8 MG PO (09:58)
[2020-11-26] MEDS: triamcinolone 0.1% cream 15 gm 1 APPLIC TOPICAL (10:00)
[2020-11-26] MEDS: terbinafine 1% Cream 15 gm 1 APPLIC TOPICAL (10:00)
[2020-11-26] MEDS: mupirocin oint 22 gm 1 APPLIC TOPICAL (10:01)
--- NOTE | 2020-11-26 11:10 | PC.CHAP ---
Pastoral Care Encounter/Spiritual Assessment Type of Contact [] Declined process description writer visit [] Patient/Family/Request visit [] Outpatient visit [] Follow-up visit [] Physician referral [] Code/Alert [x] Routine visit [] Staff referral [] Actively dying [] Patient sleeping [] Family support [] [] Out of room [] Palliative care [] [x] Receiving care in room [] Pre-surgical visit [] Trauma [] Long length of stay [] ICU visit [] Other: Relational/Emotional Strength [x] Patient feels connected with others/family/visitors/staff [] Distress [] Loneliness/isolation [] Abandonment Spirituality of Patient [x] Person of Kirstin [] Attends Confucianism of their Kirstin [x] Believes in Prayer [] Reads Bible or Restorationist materials [] There are Spiritual issues to be addressed Supervisor [employer] Interventions [x] Prayer [x] Active listening [x] Non-anxious presence [x] Spiritual/emotional support [] Crisis/trauma care [x] Spiritual counseling [] Bereavement support [] Provided bereavement packet [] Provided Bible/devotional materials [] Provided toy/stuffed animal, coloring book to patient or family member [] Provided Communion [] Anointing/Britt [] Salvation [x] Completed spiritual assessment [] Other: Impact on Illness or Injury [] Angry [] Fearful [] Anxious [] Often cries [] Exhaustion [] Unable to work [] Unable to attend latter-day [] Unable to walk/stand [] Unable to read [] Unable to drive [] Unable to eat/drink [] Unable to sleep [] Unable to be with family [] Patient intubated [] Other: Summary he is disabled he is going to has had surgery feels good and is going home Time spent with patient 10 mins
--- NOTE | 2020-11-26 12:03 | PM.PN ---
Subjective Subjective: Interval history: Patient was seen this morning, he has no complaints, he does tell me that he does sometimes get night sweats, Vitals/I&O/Wt Last Vital Signs Temp 98.5 F 11/26/20 08:00 Pulse 88 11/26/20 08:15 Resp 16 11/26/20 08:15 BP 155/85 11/26/20 08:00 Pulse Ox 96 11/26/20 08:15 11/25/20 11/26/20 11/26/20 22:59 06:59 14:59 Intake Total 1540 / 2900 1060 / 3960 Output Total 385 / 585 50 / 50 Balance 1540 / 2700 675 / 3375 -50 / -50 Physical Exam Const: COMMON NORMALS: no acute distress and patient oriented x3 Resp: COMMON NORMALS: normal respiratory effort, No retractions, No use of accessory muscles and clear to auscultation bilaterally AUSCULTATION: clear to auscultation bilaterally Cardio: COMMON NORMALS: regular rate, regular rhythm, S1 normal heart sound present and S2 normal heart sound present RATE: regular rate RHYTHM: regular rhythm HEART SOUNDS: S1 normal heart sound present and S2 normal heart sound present GI: COMMON NORMALS: Normal to inspection, nondistended, normoactive bowel sounds present and Soft to palpation PALPATION: Yes Soft to palpation Extremity: COMMON NORMALS: no pedal edema Neuro: COMMON NORMALS: patient oriented x3 Psych: COMMON NORMALS: mental status grossly normal Urinary Catheter Management^: Flynn: Cath Placed During This Visit: yes, but has since been removed by the nurse Urinary Catheter Date of Insertion: 11/25/20 Urinary Catheter Time of Insertion: 08:41 Date Urinary Catheter Removed: 11/25/20 Time Urinary Catheter Discontinued: 11:32 Data : 11/26/20 02:50 11/26/20 02:50 A&P Assessment and plan (1) Lumbar stenosis with neurogenic claudication: Status post 1. L4/5 Interbody fusion with posterolateral fusion 2. Instrumentation L4/5 3. Cage at L4/5 4. Laminectomy L4 5. use of autograft from same incision 6. allograft 7. Bone marrow aspirate from right iliac crest Right 8. Use of Computer navigation/ stereotactic for spine By Dr. Arrington Pain control and anticoagulation as per orthopedic service PT OT Type 2 diabetes mellitus, for now insulin sliding scale, check A1c Hypertension, monitor blood pressures COPD, monitor functional requirements CHF, monitor for fluid overload Monitor for postoperative fevers, nausea, vomiting, pain Patient will be discharged today, for his night sweats night sweats complaints he should follow-up with his primary care provider, he does have a right submental lymph node that is enlarged, I advised patient to monitor it, to follow-up with primary care provider, and if it persists, he should have it biopsied or ultrasound Full code Status: Acute (2) Leg edema: Status: Acute (3) GERD (gastroesophageal reflux disease): Status: Acute (4) Type 2 diabetes mellitus, without long-term current use of insulin: Status: Acute Qualifiers: Diabetes mellitus complication status: without complication Qualified Code(s): E11.9 - Type 2 diabetes mellitus without complications (5) Chronic low back pain: Status: Acute (6) COPD, moderate: Status: Acute (7) Nicotine dependence, cigarettes, with unspecified nicotine-induced disorders: Status: Chronic (8) Dyslipidemia: Status: Chronic (9) Essential (primary) hypertension: Status: Chronic (10) Carotid stenosis, left: Status: Acute (11) CHF (congestive heart failure): Status: Chronic Qualifiers: Heart failure type: diastolic Heart failure chronicity: chronic Qualified Code(s): I50.32 - Chronic diastolic (congestive) heart failure Attestations Medical Necessity Statement*: Patient will be discharged today Coding Level of Care Code Acute Laboratory Cureman for g Fwd Diagnoses Lumbar stenosis with neurogenic claudication M48.062 Leg edema R60.0 GERD (gastroesophageal reflux disease) K21.9 Type 2 diabetes mellitus, without long-term current use of insulin E11.9 Diabetes mellitus complication status: without complication Chronic low back pain M54.5; G89.29 COPD, moderate J44.9 Nicotine dependence, cigarettes, with unspecified nicotine-induced disorders F17.219 Dyslipidemia E78.5 Essential (primary) hypertension I10 Carotid stenosis, left I65.22 CHF (congestive heart failure) I50.32 Heart failure type: diastolic Heart failure chronicity: chronic
[2020-11-26 12:53] LABS: Glucose Point of Care 151 mg/dL (70-110)
--- NOTE | 2020-11-26 13:00 | PC.NURSE ---
PT HAS DONE WELL FOR ME TODAY. PT HAS NOT HAD ANY COMPLAINTS OF PAIN. DISCHARGE PAPERWORK WAS GONE OVER WITH PT. NO QUESTIONS. IV WAS REMOVED. PT TOLERATED WELL. PT WAS SAFELY WHEELED OUT AND DISCHARGED FROM THE HOSPITAL.
[2020-11-26 13:05] VITALS: PULSE 88; RESP 16; O2SAT 96
[2020-11-26 16:38] LABS: Glucose Point of Care 125 mg/dL (70-110)
--- NOTE | 2020-11-27 18:38 | PC.RESP ---
Smoking Cessation and Pulmonary Rehab information sent to patient.
== END 2020-11-26 13:06 | disposition home or self-care (01) ==
LOC: MEDSURG 11-26 08:35
PROVIDERS: Family Medicine; Admitting Provider Orthopaedic Surgery; PCP Family Medicine; Visit Provider Orthopaedic Surgery
PROC: (CPT 22612; principal; 2020-11-25 07:00)
DX: M48.062 Spinal stenosis, lumbar region with neurogenic claudication (principal); M43.16 Spondylolisthesis, lumbar region; R60.9 Edema, unspecified; K21.9 Gastro-esophageal reflux disease without esophagitis; E11.9 Type 2 diabetes mellitus without complications; G89.29 Other chronic pain; M54.5 Low back pain; J44.9 Chronic obstructive pulmonary disease, unspecified; I11.0 Hypertensive heart disease with heart failure; I50.32 Chronic diastolic (congestive) heart failure; I65.22 Occlusion and stenosis of left carotid artery; Z87.11 Personal history of peptic ulcer disease; F17.210 Nicotine dependence, cigarettes, uncomplicated; Z82.49 Family history of ischemic heart disease and other diseases of the circulatory system; Z83.3 Family history of diabetes mellitus; N40.0 Benign prostatic hyperplasia without lower urinary tract symptoms
CPT/HCPCS: 20930; 20939; 22633; 22634; 22840; 22853; 61783; 63047; 36415; 36416; 51702; 72100; 76000; 80053; 82962; 83735; 83880; 84100; 85025; 96365; 96372; 97116; 97162; 97530; C1713; G0378; J0690; J1100; J1644; J1650; J1815; J1885; J2370; J2405; J2704; J3010; J3370; J3490; J7030

== ENCOUNTER → 2020-12-09 08:29 | Outpatient (BNVA) | payer MEDICAID, SELFPAY | PROVIDERS: PCP Family Medicine; Visit Provider Anesthesiology | DX: G89.29 Other chronic pain (principal); M48.062 Spinal stenosis, lumbar region with neurogenic claudication; M96.1 Postlaminectomy syndrome, not elsewhere classified; F17.219 Nicotine dependence, cigarettes, with unspecified nicotine-induced disorders; Z79.891 Long term (current) use of opiate analgesic | CPT/HCPCS: 99213 ==

== ENCOUNTER 2020-12-28 13:02 | Outpatient (CLI) | payer MEDICAID, SELFPAY ==
--- NOTE | 2020-12-28 13:09 | CT_ITS ---
WS: [id number] CT SINUSES TECHNIQUE: Noncontrast CT of the paranasal sinuses with coronal and sagittal reformatted images. CLINICAL INFORMATION: SINUSITIS COMPARISON: June 17, 2019 DLP: 354.[address] scans at [facility] use at least one of these dose optimization techniques: automated e xposure control; mA and/or kV adjustment per patient size (includes targeted exams where dose is matc hed to clinical indication); or iterative reconstruction. FINDINGS: Mild left to right nasal septal deviation measuring 2-3 mm. Mild narrowing of the ostiomeatal units b ilaterally with mild mucosal thickening. Maxillary sinuses are well aerated. Mild mucosal thickening in the ethmoid air cells. Frontal sinuses and frontoethmoid recesses are well aerated. Trace mucosal thickening in the ethmoid air cells. Sphenoid sinuses are patent. Mild narrowing along the sphenoid o stia with mild mucosal thickening. Mastoid air cells are well aerated. Normal posterior nasopharynx. Partially visualized intracranial c ontents appear normal. Overall improved aeration of the frontal sinuses and frontal ethmoidal recesse s compared to previous. CT/CT sinus wo con* [id number] IMPRESSION: 1. Mild left to right nasal septal deviation measuring 2 to 3 mm. 2. Mild narrowing of the ostiomeatal units bilaterally which remain patent. Mi ld mucosal thickening. 3. Trace mucosal thickening ethmoid air cells. Frontal sinuses and frontoethmo idal recesses are well aerated. 4. Mild narrowing along the sphenoid sinus ostia. Sphenoid sinuses are patent. 5. Mastoid air cells are well aerated.
== END 2020-12-28 13:03 | disposition home or self-care (01) ==
PROVIDERS: PCP Family Medicine; Visit Provider Otolaryngology
DX: J01.11 Acute recurrent frontal sinusitis (principal); J34.2 Deviated nasal septum
CPT/HCPCS: 70486

== ENCOUNTER → 2021-01-07 14:48 | Outpatient (BNVA) | payer MEDICAID, SELFPAY | PROVIDERS: PCP Family Medicine; Visit Provider Orthopaedic Surgery | DX: Z48.89 Encounter for other specified surgical aftercare (principal); M47.12 Other spondylosis with myelopathy, cervical region; R52 Pain, unspecified; M47.16 Other spondylosis with myelopathy, lumbar region; Z01.818 Encounter for other preprocedural examination | CPT/HCPCS: 72100 ==

== ENCOUNTER → 2021-02-05 13:37 | Outpatient (BNVA) | payer MEDICAID, SELFPAY | PROVIDERS: PCP Family Medicine; Visit Provider Family Medicine | DX: R61 Generalized hyperhidrosis (principal); E11.9 Type 2 diabetes mellitus without complications | CPT/HCPCS: 83036; 84443 ==

== ENCOUNTER 2021-02-10 12:52 | Outpatient (CLI) | payer MEDICAID, SELFPAY ==
--- NOTE | 2021-02-10 13:00 | XR_ITS ---
WS: [id number] PROCEDURE: XR chest 2V* [id number] CLINICAL INFORMATION: night sweats COMPARISON: June 18, 2020 FINDINGS: Heart: Cardiomegaly. Lungs:Hyperinflation. Advanced chronic emphysematous changes. A few calcified granulomas. No acute pu lmonary infiltrates. Bones: Moderate thoracic kyphosis with hypertrophic changes thoracic spine. Chronic anterior wedging in the mid thoracic spine. IMPRESSION: 1. Hyperinflation with advanced chronic emphysematous changes. 2. No acute pulmonary infiltrates. 3. Cardiomegaly.
== END 2021-02-10 12:53 | disposition home or self-care (01) ==
PROVIDERS: PCP Family Medicine; Visit Provider Family Medicine
DX: R61 Generalized hyperhidrosis (principal); I51.7 Cardiomegaly
CPT/HCPCS: 71046

== ENCOUNTER 2021-02-24 13:05 | Outpatient (CLI) | payer MEDICAID, SELFPAY ==
--- NOTE | 2021-02-24 13:10 | XR_ITS ---
WS: [id number] LUMBAR SPINE TECHNIQUE: 3 views of the lumbar spine CLINICAL INFORMATION: M96.1 - Postlaminectomy syndrome, not elsewhere classified COMPARISON: January 07, 2021 FINDINGS: Osteopenia. Cholecystectomy clips. Mild thoracic curve. Pedicle screw fixation L4-5 with interbody fu sotero graft. Slight anterolisthesis L4 on L5. Disc space narrowing worse at L3-L4 and L5-S1. Moderate facet arthropathy L5-S1. Aortic calcification. Hypertrophic changes lower thoracic spine. XR/XR lumbar spine 2-3V* [id number] IMPRESSION: 1. Stable postoperative pedicle screw fixation L4-5 with interbody fusion tatiana t. 2. Stable disc space narrowing L3-L4 with slight retrolisthesis. 3. Mild disc space narrowing L5-S1. 4. Osteopenia. 5. Moderate facet arthropathy L5-S1.
--- NOTE | 2021-02-24 13:30 | XR_ITS ---
WS: [id number] PELVIS TECHNIQUE: 1 view(s) of the pelvis CLINICAL INFORMATION: Z48.89 - Encounter for other specified surgical aftercare COMPARISON: None. FINDINGS: Pedicle screw fixation L4-5 with interbody fusion graft. Osteopenia. Normal pubic rami. Marginal arth ritis both hips with hypertrophic spurring with acetabulum. Normal sacroiliac joints. XR/XR pelvis 1-2V* 85162 IMPRESSION: 1. Pedicle screw fixation L4-5 with interbody fusion graft. 2. Moderate degenerative arthritis both hips with joint space narrowing.
== END 2021-02-24 13:06 | disposition home or self-care (01) ==
PROVIDERS: PCP Family Medicine; Visit Provider Orthopaedic Surgery
DX: M96.1 Postlaminectomy syndrome, not elsewhere classified (principal); Z48.89 Encounter for other specified surgical aftercare; M16.0 Bilateral primary osteoarthritis of hip; M47.817 Spondylosis without myelopathy or radiculopathy, lumbosacral region; M85.80 Other specified disorders of bone density and structure, unspecified site
CPT/HCPCS: 72100; 72170

== ENCOUNTER → 2021-03-03 13:29 | Outpatient (BNVA) | payer MEDICAID, SELFPAY | PROVIDERS: PCP Family Medicine; Visit Provider Anesthesiology | DX: G89.29 Other chronic pain (principal); M48.062 Spinal stenosis, lumbar region with neurogenic claudication; M96.1 Postlaminectomy syndrome, not elsewhere classified; M25.559 Pain in unspecified hip; R10.2 Pelvic and perineal pain; M79.671 Pain in right foot; M79.672 Pain in left foot; F17.219 Nicotine dependence, cigarettes, with unspecified nicotine-induced disorders; Z79.891 Long term (current) use of opiate analgesic | CPT/HCPCS: 99214 ==

== ENCOUNTER → 2021-03-09 14:05 | Outpatient (BNVA) | payer MEDICAID, SELFPAY | PROVIDERS: PCP Family Medicine; Visit Provider Podiatrist Foot & Ankle Surgery | DX: Z01.818 Encounter for other preprocedural examination (principal); M79.671 Pain in right foot; Z20.822 Contact with and (suspected) exposure to COVID-19 | CPT/HCPCS: 73630; 87635 ==

== ENCOUNTER 2021-03-12 08:04 | Day surgery (SDC) | payer MEDICAID, SELFPAY ==
[2021-03-11 15:01] VITALS: BMI 27.6
--- NOTE | 2021-03-12 | SCC_ITS ---
Procedure Done: Hammertoe Correction two, three, and five and tailor's bunionectomy all left foot CPT codes 89298(x3) and 57491 4 seconds of fluoroscopic guidance, for a cumulative dose of 0.05 mGy, was provided to Dr. Olson by the radiology department. C-arm images of the LEFT foot were saved for the patient's permanent record. [facility]
--- NOTE | 2021-03-12 08:24 | ECG_ITS ---
[facility] Test Date: 2021-03-12 Pat Name: Terence Kate Department: Room: Gender: Male Template Worker: : 1965 Requested By: Homa Brennan Order Number: [id number] Pj MD: Kvng Mendoza M.D. Measurements Intervals [place] Rate: 90 P: 54 WA: 175 QRS: 24 QRSD: 90 T: 47 QT: 347 QTc: 426 Interpretive Statements SINUS RHYTHM LOW QRS VOLTAGE IN PRECORDIAL LEADS [QRS DEFLECTION < 1.0 mV IN CHEST LEADS] Compared to ECG 06/18/2020 10:02:33 No significant changes Electronically Signed On 03-13-2021 7:45:58 CAGE MAKER MACHINE by Kvng Mendoza M.D. [id number]
[2021-03-12 08:43] VITALS: BP 144/89; PULSE 91; RESP 17; TEMP 36.8; O2SAT 96
[2021-03-12 09:43] LABS: Glucose Point of Care 76 mg/dL (70-110)
--- NOTE | 2021-03-12 09:44 | ANES.PREANE2 ---
Pre-Anesthetic Assessment Pre-Anesthetic Assessment: Height/Weight: Height 1.78 m Weight 87.543 kg Temp Pulse Resp BP Pulse Ox 98.2 F 91 17 144/89 96 03/12/21 08:43 03/12/21 08:43 03/12/21 08:43 03/12/21 08:43 03/12/21 08:43 Preop Diagnosis: Hammertoe and tailor's bunion left foot, onychodystrophy right foot. Proposed Procedure: Operation Date: 03/12/21 10:20 Proposed Procedures p Hammertoe Correction two, three, and five 94434(x3) 29470 72889(x4) M20.42 M21.622 L60.3(Left) - TARUN Lindquist Bunionectomy Tailors(Left) - Asim Olson DPM s Total Matrixectomy toe nails two, three, four, and five(Right) - Asim Olson DPM Last intake: Intake Last Liquid Date 03/11/21 Last Liquid Time 23:30 Last Solid Date 03/11/21 Last Solid Time 23:30 Social: Social History: Tobacco and No alcohol Exam: Pre-Anes Outpt Exam: alert, oriented x 3, clear to auscultation bilaterally and regular rate & rhythm Airway: MP: 2 Dentition: False Pulmonary: Pulmonary: COPD CV/HEM: CV/HEM: CHF and HTN Comments: Echo 2020 CONCLUSIONS Normal left ventricular size and systolic function, EF 63 %. No gross wall motion abnormalities. The right atrium right ventricle appears to be of normal size with normal RV ejection fraction. Mildly dilated IVC. There is no pericardial effusion. There are no intracardiac masses. Technically difficult study because of the poor ultrasonic window. GI: GI: GERD Metabolic: Metabolic: DM and Morbid obesity Musc/skel: Comments: juvenile arthritis Neuropsych: Neuropsych: Neuropathy and Seizure (30 years ago) Anesthetic Plan: ASA status: 3 Anesthesia: General Risk of > 500 ml blood loss (7ml/kg in children): No PFSH Anesthesia PFSH: Medical History Lucio esophagus BPH (benign prostatic hyperplasia) Carotid stenosis, left Cervical spondylosis with myelopathy CHF (congestive heart failure) Chronic GERD Chronic otitis externa Chronic sinusitis COPD, moderate Deviated septum Dyslipidemia Dysphasia Encounter for long-term (current) use of NSAIDs Encounter for long-term opiate analgesic use Encounter for long-term opiate analgesic use Epilepsy Essential (primary) hypertension GERD (gastroesophageal reflux disease) Lumbar post-laminectomy syndrome Nasal turbinate hypertrophy Opioid contract exists Personal history of peptic ulcer disease Type 2 diabetes mellitus, without long-term current use of insulin Surgical History H/O carpal tunnel repair H/O cataract extraction H/O hernia repair History of back surgery History of cholecystectomy Family History Father Cancer LUNG Diabetes CAD (coronary artery disease) Mother Cancer STOMACH CAD (coronary artery disease) Sister Down syndrome HALF SISTER Other Parkinson disease Social History Quit status (tobacco): considering quitting Alcohol intake: former Lives independently: Yes Household members: spouse History of recent travel: No Data Anesthesia CBC & Chem 7: 03/12/21 09:32 Other Labs: Laboratory Results - last 48 hr 03/12/21 09:36 POC Glucose 76 Cardiac Studies: No Data to Display
[2021-03-12] MEDS: sodium chloride 0.9% 1,000 ML 30 ML IV (10:00)
[2021-03-12 10:14] LABS: Anion Gap 12.8 (5-19); Blood Urea Nitrogen 18 mg/dL (6-20); Calcium 9.1 mg/dL (8.5-10.5); Carbon Dioxide 29 mmol/L (22-29); Chloride 101 mmol/L (98-107); Glomerular Filtration Rate 87.6 mL/min (90-130); Glucose 101 mg/dL (65-115); Osmolality Calculated 290 mOsm/kg (285-295); Potassium 3.8 mmol/L (3.5-5.1); Sodium 139 mmol/L (136-145)
--- NOTE | 2021-03-12 11:15 | P.HPUD_ITS ---
Surgery/Procedure H&P Update DATE OF PROCEDURE: March 12, 2021 DATE H&P PERFORMED: 03/09/21 H&P UPDATE INFORMATION: I have reviewed H&P completed within last 30 days, I have examined patient prior to procedure, No changes to prior documentation and H&P is in [facility] EMR on date indicated PREOP DIAGNOSIS: Hammertoe and tailor's bunion left foot, onychodystrophy right foot. PLANNED PROCEDURE: Operation Date: 03/12/21 10:20 Proposed Procedures p Hammertoe Correction two, three, and five 54783(x3) 08876 45428(x4) M20.42 M21.622 L60.3(Left) - TARUN Lindquist Bunionectomy Tailors(Left) - TARUN Lindquist Total Matrixectomy toe nails two, three, four, and five(Right) - Asim Olson DPM
[2021-03-12] MEDS: lidocaine 1% INJ 20 mL XX (12:11)
[2021-03-12] MEDS: silver sulfadiazine cream 1% 50 gm 1 APPLIC TOPICAL (13:00)
--- NOTE | 2021-03-12 13:09 | P.OP_ITS ---
Operative Report Date of procedure: March 12, 2021 Pre-op Diagnosis: Hammertoe and tailor's bunion left foot, onychodystrophy right foot. Post-op diagnosis: same Procedure Done: Hammertoe Correction two, three, and five and tailor's buni onectomy all left foot CPT codes 88352(x3) and 86509 Total matrixectomy toenails two, three, four, five right foot 42093 (x4) Implants: 0.062 K wire x2, ProStep by [employer] for tailor's bunion, 3-0 Vicryl, 4-0 Vicryl, 4-0 nylon Pathology: none sent Surgeon: Asim Olson D.P.M. [employer]: Brigida Anesthesia: General Estimated blood loss: Less than 10 mL Tourniquet time: See Intra-Op documentation IV fluids: 0 Urine output: 0 Complications: None Condition: stable Disposition: PACU Brief History: Patient is a pleasant 55-year-old male who has had progressive pain as a result of hammertoe deformities and tailor's bunion to the left foot. Has been wearing diabetic shoes and wearing pads and spacers and still has pain on a daily basis with everyday activities such as standing and walking. Would like to pursue hammertoe correction of toes 2, 3 and 5 in the left foot as well as tailor's bunionectomy. Patient would also like to have toenails 2, 3, 4 and 5 of right foot removed permanently while he is under anesthesia. Patient has been n.p.o. since midnight. Covid screening was negative. Informed consent signed by patient and myself, wishes to proceed. No guarantees written, expressed or implied. Procedure: Under mild sedation the patient was brought to the operating room and remained on the gurney in supine position. A timeout was performed. Anesthesia was then administered by the anesthesia service. Local anesthesia injected by myself consisting of one-to-one mixture 1% lidocaine and 0.5% Marcaine plain and a left, third and fifth ray block. Well-padded pneumatic tourniquet applied to the left ankle. Left lower extremity was then scrubbed, prepped and draped utilizing normal aseptic technique. Left foot was examined he waited with an Esmarch bandage and the tourniquet inflated to 250 mmHg. Attention was directed to the dorsal aspect of the left second and third toes where a linear longitudinal incision was made over the dorsal aspect of the proximal interphalangeal joint with a #15 blade. Dissection was carried down to the extensor tendon utilizing blunt and sharp technique. Care was taken to retract and preserve neurovascular and tendon structures. Bleeders were ligated and cauterized as necessary. At the level of the proximal interphalangeal joint the extensor tendons were transected with a #15 blade at the second and third toes and hemostat applied with this rotated proximally over the forefoot. Transverse capsulotomy was performed in the head of the second and third proximal phalanx was freed of its soft tissue attachments followed by transection utilizing a bone cutter. The intermediate phalanx base was then denuded of articular surface utilizing a rongeur at the second and third toes. Incision was flushed with saline solution followed by K wire fixation utilizing antegrade and retrograde grade technique. Excellent bony apposition and compression noted and rectus second and third toes of the left foot appreciated, distal aspect of the K wire was bent at a 90 degree angle and covered with a Hemal ball. Proximally this was driven to the base of the proximal phalanx and did not cross the metatarsophalangeal joint at the second and third toe this was confirmed with fluoroscopy. Incisions were flushed with saline solution followed by reapproximation of the extensor tendon utilizing 4-0 Vicryl suture. Skin was then closed utilizing 4-0 nylon at the dorsal aspect of the left second and third toes. Attention was then directed to the dorsal lateral aspect of the left fifth metatarsal phalangeal joint where a linear longitudinal incision was made at the fifth toe coursing proximally across the fifth metatarsophalangeal joint. Dissection was carried down through skin and subcutaneous tissue to the level of the joint capsule of the left fifth metatarsophalangeal joint which was then incised in a linear capsulotomy fashion with #15 blade and the lateral aspect of the fifth metatarsal head was transected at its osseous prominence this was passed from the operative field followed by transverse osteotomy at the metaphyseal flare and shifting medially in a more anatomic rectus position and fixated utilizing a intramedullary implant and locking screw with excellent bony apposition and compression noted. Following the tailor's bunionette the left fifth toe had an improved position but not completely rectus there is still some transverse plane and sagittal plane hammertoe deformity. Soft tissue release at the medial aspect of the fifth metatarsal phalangeal joint was performed to rectify the hammertoe contracture followed by tendon lengthening via Z-plasty of the extensor tendons to the fifth toe dorsally. Following this the fifth toe was in a more rectus position. Incision site was flushed with copious amounts of sterile saline solution and closed in a layered fashion with 3-0 Vicryl joint capsule, 4-0 Vicryl subcutaneous tissue and 4-0 nylon at skin. Incision sites were dressed with Adaptic, sterile 4 x 4's, Kerlix and Mark wrap followed by application of cam boot. Tourniquet was then deflated and a prompt hyperemic response was noted to the distal digits of the left foot. Patient tolerated the procedure well. Sterile was then broke and sterile draping removed. Tourniquet was transferred to the right ankle was well-padded. Right ankle tourniquet was inflated to 250 mmHg followed by a lesser digital blocks of one-to-one mixture 1% lidocaine and point 5% Marcaine plain 1 cc each at toes 2, 3, 4 and 5 of the right foot in a lesser block fashion. Toes were scrubbed with chlorhexidine followed by release of all soft tissue at the medial and lateral nail borders as well as proximal nail fold utilizing an elevator of toenails 2, 3, 4 and 5 of the right foot followed by avulsion of the nail plate in toto utilizing a hemostat, all rough edges were smoothed and curettage to the nail matrix was performed per better penetration. No remaining nail spicules were visualized and no redundant tissue. Nail matrix of toes 2, 3, 4 and 5 were then chemically cauterized and destroyed utilizing 89% phenol for 30 seconds each x2 toenail beds 2, 3, 4 and 5 followed by alcohol flush. Nail beds 2, 3, 4 and 5 right foot were then dressed with Silvadene cream, Adaptic, 4 x 4, Codi and Coban. Tourniquet was deflated and a prompt hyperemic response was noted to all 5 digits of the right foot. Patient tolerated procedure well and was transferred to the PACU with vital signs stable and vascular status intact. Following a period of postoperative monitoring he will be discharged home. He is to utilize a postop shoe to the right foot and a cam boot to the left and to limit his activity is to elevate both feet while resting. Will follow up in podiatry clinic next week.
[2021-03-12 13:10] VITALS: BP 165/93; PULSE 85; RESP 16; TEMP 36.2; O2SAT 98
[2021-03-12 13:15] VITALS: BP 162/107; PULSE 91; RESP 16; O2SAT 100
--- NOTE | 2021-03-12 13:18 | XR_ITS ---
WS: [id number] LEFT FOOT: 3 VIEW(S) TECHNIQUE: AP, oblique and lateral. HISTORY: post op COMPARISON: 03/09/2021 Orthopedic pins through the second and third phalanges correcting hammertoe deformities. Normal align ment of the second and third phalanges. There is an additional osteotomy site involving the distal fifth metatarsal. The fifth lateral metata rsal head may also be shaved. There is screw fixation across the osteotomy site of the fifth metatars al. The metatarsal head is medially displaced by 4.5 mm with comparison to the proximal metatarsal. XR/XR foot LT min 3V* [id number] IMPRESSION: 1. Second and third toe pin stabilizing and correcting hammertoe deformities a re noted in good alignment. 2. Distal fifth metatarsal osteotomy site with orthopedic fixation and stabili zation. Suspect the lateral aspect of the fifth metatarsal head has been shaved .
[2021-03-12 13:20] VITALS: BP 170/97; PULSE 90; RESP 22; TEMP 36.2; O2SAT 96
[2021-03-12 13:38] VITALS: BP 158/92; PULSE 90; RESP 16; TEMP 36.1; O2SAT 97
[2021-03-12 14:05] VITALS: BP 150/81; PULSE 82; RESP 18; TEMP 36.1; O2SAT 98
== END 2021-03-12 14:22 | disposition home or self-care (01) ==
PROVIDERS: Anesthesiology; PCP Family Medicine; Visit Provider Podiatrist Foot & Ankle Surgery
PROC: (CPT 28285; principal; 2021-03-12 10:20)
PROC: 0QBP0ZZ Excision of Left Metatarsal, Open Approach (ICD-10-PCS; CPT 28110; 2021-03-12 10:20)
PROC: (CPT 11750; 2021-03-12 10:20)
DX: M20.42 Other hammer toe(s) (acquired), left foot (principal); M21.622 Bunionette of left foot; L60.3 Nail dystrophy; J44.9 Chronic obstructive pulmonary disease, unspecified; I11.0 Hypertensive heart disease with heart failure; I50.9 Heart failure, unspecified; E11.9 Type 2 diabetes mellitus without complications; E66.01 Morbid (severe) obesity due to excess calories; Z68.27 Body mass index [BMI] 27.0-27.9, adult; N40.0 Benign prostatic hyperplasia without lower urinary tract symptoms; E78.5 Hyperlipidemia, unspecified; Z79.891 Long term (current) use of opiate analgesic; Z87.11 Personal history of peptic ulcer disease; Z79.4 Long term (current) use of insulin; Z82.49 Family history of ischemic heart disease and other diseases of the circulatory system; Z83.3 Family history of diabetes mellitus; Z80.1 Family history of malignant neoplasm of trachea, bronchus and lung; Z80.0 Family history of malignant neoplasm of digestive organs
CPT/HCPCS: 11750 ×4; 28285 ×3; 28308; 36416; 73630; 76000; 80048; 82962; 93005; 96365; C1713; J0690; J2405; J2704; J3010; J3490; J7030; L3260

== ENCOUNTER → 2021-03-29 15:14 | Outpatient (BNVA) | payer MEDICAID, SELFPAY | PROVIDERS: PCP Family Medicine; Visit Provider Podiatrist Foot & Ankle Surgery | DX: Z98.890 Other specified postprocedural states (principal) | CPT/HCPCS: 73630 ==

== ENCOUNTER → 2021-04-14 16:04 | Outpatient (BNVA) | payer MEDICAID, SELFPAY | PROVIDERS: PCP Family Medicine; Visit Provider Podiatrist Foot & Ankle Surgery | DX: Z47.89 Encounter for other orthopedic aftercare (principal); Z98.1 Arthrodesis status | CPT/HCPCS: 73630 ==

== ENCOUNTER → 2021-04-22 14:35 | Outpatient (BNVA) | payer MEDICAID, SELFPAY | PROVIDERS: PCP Family Medicine; Visit Provider Podiatrist Foot & Ankle Surgery | DX: Z47.89 Encounter for other orthopedic aftercare (principal) | CPT/HCPCS: 73630 ==

== ENCOUNTER → 2021-05-14 13:00 | Outpatient (BNVA) | payer MEDICAID, SELFPAY | PROVIDERS: PCP Family Medicine; Visit Provider Anesthesiology | DX: M48.062 Spinal stenosis, lumbar region with neurogenic claudication (principal); M96.1 Postlaminectomy syndrome, not elsewhere classified; F17.210 Nicotine dependence, cigarettes, uncomplicated; Z79.891 Long term (current) use of opiate analgesic | CPT/HCPCS: 99214 ==

== ENCOUNTER → 2021-06-10 12:17 | Outpatient (BNVA) | payer MEDICAID, SELFPAY | PROVIDERS: PCP Family Medicine; Visit Provider Family Medicine | DX: R39.15 Urgency of urination (principal) | CPT/HCPCS: 81000 ==

== ENCOUNTER → 2021-08-09 15:08 | Outpatient (BNVA) | payer MEDICAID, SELFPAY | PROVIDERS: PCP Family Medicine; Visit Provider Internal Medicine | DX: E11.69 Type 2 diabetes mellitus with other specified complication (principal); E11.42 Type 2 diabetes mellitus with diabetic polyneuropathy; I10 Essential (primary) hypertension; N40.0 Benign prostatic hyperplasia without lower urinary tract symptoms; N48.6 Induration penis plastica; E78.2 Mixed hyperlipidemia; N52.9 Male erectile dysfunction, unspecified; E66.01 Morbid (severe) obesity due to excess calories; F17.210 Nicotine dependence, cigarettes, uncomplicated; Z68.41 Body mass index [BMI] 40.0-44.9, adult; Z79.84 Long term (current) use of oral hypoglycemic drugs | CPT/HCPCS: 99204 ==

== ENCOUNTER → 2021-09-09 10:41 | Outpatient (BNVA) | payer MEDICAID, SELFPAY | PROVIDERS: PCP Family Medicine; Visit Provider Orthopaedic Surgery | DX: M48.062 Spinal stenosis, lumbar region with neurogenic claudication (principal); Z98.890 Other specified postprocedural states | CPT/HCPCS: 72100; 99214 ==

== ENCOUNTER → 2021-09-20 14:10 | Outpatient (BNVA) | payer MEDICAID, SELFPAY | PROVIDERS: PCP Family Medicine; Referring Provider Orthopaedic Surgery; Visit Provider Specialist | DX: M48.062 Spinal stenosis, lumbar region with neurogenic claudication (principal); E11.42 Type 2 diabetes mellitus with diabetic polyneuropathy; Z79.899 Other long term (current) drug therapy | CPT/HCPCS: 95909; 95911 ==

== ENCOUNTER → 2021-10-12 11:07 | Outpatient (BNVA) | payer MEDICAID, SELFPAY | PROVIDERS: PCP Family Medicine; Visit Provider Podiatrist Foot & Ankle Surgery | DX: L60.3 Nail dystrophy (principal); E11.21 Type 2 diabetes mellitus with diabetic nephropathy; Z91.81 History of falling; M21.371 Foot drop, right foot; M21.372 Foot drop, left foot; M25.371 Other instability, right ankle; M25.372 Other instability, left ankle | CPT/HCPCS: 99214 ==

== ENCOUNTER → 2021-10-14 13:30 | Outpatient (BNVA) | payer MEDICAID, SELFPAY | PROVIDERS: PCP Family Medicine; Referring Provider Orthopaedic Surgery; Visit Provider Specialist | DX: G62.89 Other specified polyneuropathies (principal); M21.371 Foot drop, right foot; M21.372 Foot drop, left foot; M96.1 Postlaminectomy syndrome, not elsewhere classified | CPT/HCPCS: 95860; 99204 ==

== ENCOUNTER 2021-11-01 14:57 | Outpatient (CLI) | payer MEDICAID, SELFPAY ==
[2021-11-01 15:49] LABS: Estmated Average Glucose 103; Hemoglobin A1C 5.2 % (4.0-6.0)
[2021-11-01 15:56] LABS: Chol HDL Ratio 3.69 mg/dL (1.0-5.00); Cholesterol 118 mg/dL (0-200); HDL Cholesterol 32 mg/dL (60-100); LDL Cholesterol Calculated 64 mg/dL (50-129); Triglycerides 110 mg/dL (0-150)
[2021-11-01 16:03] LABS: Testosterone Total 499.2 ng/dL (193-740)
[2021-11-01 16:35] LABS: Follicle Stimulating Hormone 6.6 mIU/mL (1.5-12.4); Luteinizing Hormone 10.6 mIU/mL (1.7-8.6)
[2021-11-05 13:17] LABS: Testosterone, Free 51.8 pg/mL (46.0-224.0)
== END 2021-11-01 14:58 | disposition home or self-care (01) ==
PROVIDERS: PCP Family Medicine; Visit Provider Internal Medicine
DX: E11.9 Type 2 diabetes mellitus without complications (principal); E78.5 Hyperlipidemia, unspecified; I10 Essential (primary) hypertension; N40.0 Benign prostatic hyperplasia without lower urinary tract symptoms; N48.6 Induration penis plastica
CPT/HCPCS: 36415; 80061; 83001; 83002; 83036; 84402; 84403

== ENCOUNTER → 2021-11-04 13:35 | Outpatient (BNVA) | payer MEDICAID, SELFPAY | PROVIDERS: PCP Family Medicine; Visit Provider Orthopaedic Surgery | DX: M48.062 Spinal stenosis, lumbar region with neurogenic claudication (principal); M25.371 Other instability, right ankle; M25.372 Other instability, left ankle; G62.9 Polyneuropathy, unspecified; M96.1 Postlaminectomy syndrome, not elsewhere classified; G89.29 Other chronic pain; M21.371 Foot drop, right foot; M21.372 Foot drop, left foot; Z91.81 History of falling; M17.0 Bilateral primary osteoarthritis of knee; M21.41 Flat foot [pes planus] (acquired), right foot; M21.42 Flat foot [pes planus] (acquired), left foot; M21.621 Bunionette of right foot; M21.622 Bunionette of left foot; R20.0 Anesthesia of skin | CPT/HCPCS: 99213 ==

== ENCOUNTER → 2021-11-09 12:25 | Outpatient (BNVA) | payer MEDICAID, SELFPAY | PROVIDERS: PCP Family Medicine; Visit Provider Internal Medicine | DX: E11.69 Type 2 diabetes mellitus with other specified complication (principal); E11.42 Type 2 diabetes mellitus with diabetic polyneuropathy; E11.8 Type 2 diabetes mellitus with unspecified complications; E78.2 Mixed hyperlipidemia; N52.9 Male erectile dysfunction, unspecified; R15.9 Full incontinence of feces; R32 Unspecified urinary incontinence; E66.01 Morbid (severe) obesity due to excess calories; Z68.36 Body mass index [BMI] 36.0-36.9, adult; F17.210 Nicotine dependence, cigarettes, uncomplicated; Z79.84 Long term (current) use of oral hypoglycemic drugs | CPT/HCPCS: 99215 ==

== ENCOUNTER → 2021-11-11 08:38 | Outpatient (BNVA) | payer MEDICAID, SELFPAY | PROVIDERS: PCP Family Medicine; Visit Provider Podiatrist Foot & Ankle Surgery | DX: L60.3 Nail dystrophy (principal); L60.0 Ingrowing nail; M25.371 Other instability, right ankle; M25.372 Other instability, left ankle; M21.371 Foot drop, right foot; M21.372 Foot drop, left foot; G62.9 Polyneuropathy, unspecified; M62.562 Muscle wasting and atrophy, not elsewhere classified, left lower leg | CPT/HCPCS: 11750; 99214; A6219; A6446 ==

== ENCOUNTER → 2021-12-13 11:38 | Outpatient (BNVA) | payer MEDICAID, SELFPAY | PROVIDERS: PCP Family Medicine; Visit Provider Podiatrist Foot & Ankle Surgery | DX: L60.0 Ingrowing nail (principal); M25.371 Other instability, right ankle; M25.372 Other instability, left ankle; M21.371 Foot drop, right foot; M21.372 Foot drop, left foot; G62.9 Polyneuropathy, unspecified; L60.3 Nail dystrophy; M62.562 Muscle wasting and atrophy, not elsewhere classified, left lower leg | CPT/HCPCS: 99213; 99214 ==

== ENCOUNTER → 2022-03-04 13:19 | Outpatient (BNVA) | payer MEDICAID, SELFPAY | PROVIDERS: PCP Family Medicine; Visit Provider Family Medicine | DX: I10 Essential (primary) hypertension (principal) | CPT/HCPCS: 80053; 83036; 85025 ==

== ENCOUNTER → 2022-04-13 13:38 | Outpatient (BNVA) | payer MEDICAID, SELFPAY | PROVIDERS: PCP Family Medicine; Visit Provider Internal Medicine | DX: E11.69 Type 2 diabetes mellitus with other specified complication (principal); E11.42 Type 2 diabetes mellitus with diabetic polyneuropathy; N52.9 Male erectile dysfunction, unspecified; E78.2 Mixed hyperlipidemia; E66.01 Morbid (severe) obesity due to excess calories; Z68.38 Body mass index [BMI] 38.0-38.9, adult | CPT/HCPCS: 99214 ==

== ENCOUNTER → 2022-05-17 15:24 | Outpatient (BNVA) | payer MEDICAID, SELFPAY | PROVIDERS: PCP Family Medicine; Visit Provider Family Medicine | DX: R61 Generalized hyperhidrosis (principal); H60.92 Unspecified otitis externa, left ear | CPT/HCPCS: 82533; 84443 ==

== ENCOUNTER → 2022-09-06 13:29 | Outpatient (BNVA) | payer MEDICAID, SELFPAY | PROVIDERS: PCP Family Medicine; Visit Provider Internal Medicine | DX: E11.42 Type 2 diabetes mellitus with diabetic polyneuropathy (principal); E11.69 Type 2 diabetes mellitus with other specified complication; E78.2 Mixed hyperlipidemia; N52.9 Male erectile dysfunction, unspecified; E66.01 Morbid (severe) obesity due to excess calories; Z68.39 Body mass index [BMI] 39.0-39.9, adult | CPT/HCPCS: 99214 ==

== ENCOUNTER 2022-12-02 14:29 | Outpatient (CLI) | payer MEDICAID, SELFPAY ==
[2022-12-02 15:28] LABS: Estmated Average Glucose 111; Hemoglobin A1C 5.5 % (4.0-6.0)
[2022-12-02 15:47] LABS: Creatinine Urine, Random 77 mg/dL (39-259); Microalbum Creatinine Ratio Ur 13 mg/dL (0-20); Microalbumin Random Urine 1 ug/dL (0-20)
[2022-12-02 15:50] LABS: Alanine Aminotransferase 23 U/L (0-41); Alkaline Phosphatase 74 U/L (40-130); Aspartate Amino Transferase 27 U/L (0-40); Blood Urea Nitrogen 23 mg/dL (6-20); Calcium 9.5 mg/dL (8.5-10.5); Carbon Dioxide 29 mmol/L (22-29); Chloride 103 mmol/L (98-107); Cholesterol 126 mg/dL (0-200); Globulin 2.9 g/dL (1.3-4.6); Glomerular Filtration Rate 56.9 mL/min (90-130); Glucose 91 mg/dL (65-115); HDL Cholesterol 36 mg/dL (60-100); LDL Cholesterol Calculated 73 mg/dL (50-129); LDL HDL Ratio 2.03 RATIO (0.00-3.22); Osmolality Calculated 293 mOsm/kg (285-295); Sodium 140 mmol/L (136-145); Total Bilirubin 0.3 mg/dL (0.15-1.2); Total Protein 6.9 g/dL (6.6-8.7); Triglycerides 85 mg/dL (0-150)
== END 2022-12-02 14:30 | disposition home or self-care (01) ==
LOC: LAB 14:31
PROVIDERS: PCP Family Medicine; Visit Provider Internal Medicine
DX: E11.69 Type 2 diabetes mellitus with other specified complication (principal); E11.42 Type 2 diabetes mellitus with diabetic polyneuropathy; E11.8 Type 2 diabetes mellitus with unspecified complications; E66.01 Morbid (severe) obesity due to excess calories; E78.2 Mixed hyperlipidemia; N52.9 Male erectile dysfunction, unspecified
CPT/HCPCS: 36415; 80053; 80061; 82044; 83036

== ENCOUNTER 2022-12-24 16:12 | Emergency (ER) | payer MEDICAID, SELFPAY ==
[2022-12-24 16:19] VITALS: BP 136/93; PULSE 93; RESP 18; TEMP 36.8; O2SAT 94; BMI 39.4
--- NOTE | 2022-12-24 16:33 | CTR_ITS ---
PROCEDURE INFORMATION: Exam: CT Head Without Contrast Exam date and time: 12/24/2022 4:55 PM Age: 57 years old Clinical indication: Condition or disease; Other: Double vision TECHNIQUE: Imaging protocol: Computed tomography of the head without contrast. Radiation optimization: All CT scans at this facility use at least one of these dose optimization techniques: automated exposure control; mA and/or kV adjustment per patient size (includes targeted exams where dose is matched to clinical indication); or iterative reconstruction. REPORTING DATA: Count of CT and Cardiac NM exams in prior 12 months: This patient has received 0 known CTs and 0 known cardiac nuclear medicine studies in the 12 months prior to the current study. COMPARISON: CT sinus wo con* [id number] 12/28/2020 1:13 PM RADIATION DOSE METRICS: Total DLP (mGy-cm): 1128.58 FINDINGS: Brain: Mild diffuse cortical volume loss. Very mild hypodensities in supratentorial periventricular and subcortical white matter, consistent with microangiopathy. No intracranial hemorrhage. Cerebral ventricles: No ventriculomegaly. Paranasal sinuses: Mucosal thickening in the left frontal sinus and anterior ethmoid air cells. The other sinuses are clear. Mastoid air cells: Visualized mastoid air cells are well aerated. Orbital cavities: Prior cataract surgery. 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 No fracture. Soft tissues: Unremarkable. Vasculature: No hyperdense artery. CT/CT head wo con* [id number] IMPRESSION: No acute intracranial abnormality.
--- NOTE | 2022-12-24 16:38 | W.ED.GENADLT ---
HPI - General Adult General: Chief complaint: General Medical Stated complaint: DOUBLE VISION Time Seen by Provider: 12/24/22 16:22 History of Present Illness: Patient presents to the ER by EMS for vision changes. Patient was seen in the urgent care earlier today and was told to come appear to rule out stroke and tumor. Patient reports when he closes his right eye and sees through his left eye his vision is perfectly normal but when he closes his left eye and looks at his right eye things are very fuzzy but only a singular image is seen. When patient looks at both eyes double vision is noted. Patient has had no head trauma, headaches, or other complaints. Review of Systems General: Reports: 10 or more systems reviewed and unremarkable except in HPI and below PFSH ED PFSH: Medical History Lucio esophagus BPH (benign prostatic hyperplasia) Carotid stenosis, left Cervical spondylosis with myelopathy CHF (congestive heart failure) Chronic GERD Chronic otitis externa Chronic sinusitis COPD, moderate Deviated septum Dyslipidemia Dysphasia Encounter for long-term (current) use of NSAIDs Encounter for long-term opiate analgesic use Encounter for long-term opiate analgesic use Epilepsy Essential (primary) hypertension GERD (gastroesophageal reflux disease) Lumbar post-laminectomy syndrome Nasal turbinate hypertrophy Opioid contract exists Personal history of peptic ulcer disease Type 2 diabetes mellitus, without long-term current use of insulin Surgical History H/O carpal tunnel repair H/O cataract extraction H/O hernia repair History of back surgery History of cholecystectomy Family History Father Cancer LUNG Diabetes CAD (coronary artery disease) Mother Cancer STOMACH CAD (coronary artery disease) Sister Down syndrome HALF SISTER Other Parkinson disease Social History Smoking and tobacco status: current every day smoker cigarettes Packs smoked per day: 2 Years cigarettes smoked: 30 and smokeless tobacco Quit status (tobacco): considering quitting Alcohol intake: former Substance/Drug Use: never Lives independently: Yes Household members: spouse Physical Exam Const: COMMON NORMALS: no acute distress, average body habitus, patient oriented x3, no limitations, healthy appearing, alert and well nourished HENMT: COMMON NORMALS: normocephalic, atraumatic, hearing grossly normal bilaterally, external ears normal, Normal external nose present and moist oral mucous membranes HEAD & SCALP: normocephalic and atraumatic NOSE: Normal external nose present EXTERNAL EAR: Yes external ears normal Eye: COMMON NORMALS: Equal, round and reactive pupils present, EOMs intact bilaterally, conjunctivae normal and no scleral icterus CONJUNCTIVA: Yes conjunctivae normal PUPIL: Yes Equal, round and reactive pupils present Neck/C-Spine: COMMON NORMALS: full ROM, no lymphadenopathy, supple, no meningeal signs, no JVD and Thyroid normal THYROID: Thyroid normal Resp: COMMON NORMALS: normal respiratory effort, No retractions and No use of accessory muscles Cardio: COMMON NORMALS: no JVD, regular rate, regular rhythm, S1 normal heart sound present, S2 normal heart sound present, No gallops present (Cardio), No clicks present (Cardio), No murmurs present (Cardio) and No rub (Cardio) RATE: regular rate RHYTHM: regular rhythm HEART SOUNDS: S1 normal heart sound present and S2 normal heart sound present GI: COMMON NORMALS: Normal to inspection, nondistended, normoactive bowel sounds present, Soft to palpation, non-tender, No hepatosplenomegaly present and no masses PALPATION: Yes Soft to palpation and Yes No hepatosplenomegaly present : COMMON NORMALS: Yes no CVA tenderness BLADDER/KIDNEY EXAM: Yes no CVA tenderness Back/Pelvis: COMMON NORMALS: no CVA tenderness Neuro: COMMON NORMALS: patient oriented x3 SENSORIUM/ORIENTATION: Yes alert MENINGEAL SIGNS: Yes no meningeal signs Course Vital Signs: Vital signs: Vital Signs Temperature 98.2 F 12/24/22 16:19 Pulse Rate 93 12/24/22 16:19 Respiratory Rate 18 12/24/22 16:19 Blood Pressure 136/93 12/24/22 16:19 Pulse Oximetry 94 12/24/22 16:19 Oxygen Delivery Me thod Room Air 12/24/22 16:19 [facility] - General Adult Medical Decision Making Sent over from urgent care for double vision for 3 days with no known cause. Patient has CT scan done of his head as well is various blood work which was essentially benign. 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 Patient will be discharged home Differential Diagnosis Double vision Medical Records I reviewed the patient's medical records. Lab Data I reviewed the patient's lab results. 12/24/22 16:10 12/24/22 16:[address] 12/24/22 16:33 IMPRESSION: No acute intracranial abnormality. Laboratory Results WBC 8.26 10^3/uL (3.29-11.43) 12/24/22 16:10 RBC 5.38 10^6/uL (3.85-5.65) 12/24/22 16:10 Hgb 17.10 g/dL (11.27-16.99) H 12/24/22 16:10 Hct 50.1 % (37-53) 12/24/22 16:10 MCV 93.1 fl (82-101) 12/24/22 16:10 MCH 31.8 pg (27-33) 12/24/22 16:10 MCHC 34.1 g/dL (30-55) 12/24/22 16:10 RDW 13.1 % (12.1-15.1) 12/24/22 16:10 Plt Count 221 10^3/cmm (157-399) 12/24/22 16:10 MPV 9.2 fL (7.4-10.4) 12/24/22 16:10 Neut % (Auto) 71.6 % 12/24/22 16:10 Lymph % (Auto) 19.6 % 12/24/22 16:10 Greer % (Auto) 6.2 % 12/24/22 16:10 Eos % (Auto) 1.9 % 12/24/22 16:10 Baso % (Auto) 0.5 % 12/24/22 16:10 Neut # (Auto) 5.91 10^3/uL (1.8-7.7) 12/24/22 16:10 Lymph # (Auto) 1.6 10^3/uL (0.8-4.8) 12/24/22 16:10 Greer # (Auto) 0.5 10^3/uL (0.2-0.9) 12/24/22 16:10 Eos # (Auto) 0.2 10^3/uL (0.0-0.8) 12/24/22 16:10 Baso # (Auto) 0.0 10^3/uL (0.0-0.1) 12/24/22 16:10 Nucleated RBC % (auto) 0 % 12/24/22 16:10 Nucleated RBCs # 0.0 /100WBC 12/24/22 16:10 ESR 31 mm/hr (0-10) H 12/24/22 16:10 PT 13.80 SECONDS (12.1-14.9) 12/24/22 16:10 INR 1.02 (0.8-1.2) 12/24/22 16:10 Sodium 139 mmol/L (136-145) 12/24/22 16:10 Potassium 3.7 mmol/L (3.5-5.1) 12/24/22 16:10 Chloride 101 mmol/L (98-107) 12/24/22 16:10 Carbon Dioxide 26 mmol/L (22-29) 12/24/22 16:10 Anion Gap 15.7 (5-19) 12/24/22 16:10 BUN 23 mg/dL (6-20) H 12/24/22 16:10 Creatinine 0.9 mg/dL (0.7-1.2) 12/24/22 16:10 GFR Calculation 87.0 mL/min (90-130) L 12/24/22 16:10 Glucose 112 mg/dL (65-115) 12/24/22 16:10 Calculated Osmolality 292 mOsm/kg (285-295) 12/24/22 16:10 Calcium 9.8 mg/dL (8.5-10.5) 12/24/22 16:10 Total Bilirubin 0.5 mg/dL (0.15-1.2) 12/24/22 16:10 AST 25 U/L (0-40) 12/24/22 16:10 ALT 23 U/L (0-41) 12/24/22 16:10 Alkaline Phosphatase 77 U/L (40-130) 12/24/22 16:10 C-Reactive Protein 5.6 mg/L (0.0-4.9) H 12/24/22 16:10 Total Protein 7.4 g/dL (6.6-8.7) 12/24/22 16:10 Albumin 4.4 g/dL (3.5-5.2) 12/24/22 16:10 Globulin 3.0 g/dL (1.3-4.6) 12/24/22 16:10 All radiology interpretation(s) finalized by discharge Discharge Plan Discharge Patient Disposition: Home Clinical Impression: Change in vision, Double vision Condition: Stable Prescriptions: No Action aspirin 81 mg tablet,delayed release (DR/EC) 81 mg PO DAILY triamcinolone acetonide 0.1 % cream 1 applic TOPICAL BID acetaminophen [Tylenol Extra Strength] 500 mg tablet 1,000 mg PO Q6H PRN (Reason: Pain) (DME) AFO for foot drop bilaterally See Rx Instructions .Route .MEDSUPPLY Qty: 1 0RF Rx Instructions: [facility] (DME) blood-glucose meter [7[employer] SolutionsTouch Ultra2 Meter] [facility] [place] See Rx Instructions .Route Qty: 1 0RF Rx Instructions: As directed, TEST ONCE DAILY. (DME) AFO for foot drop bilaterally and diabetic shoes See Rx Instructions .Route .MEDSUPPLY Qty: 1 0RF Rx Instructions: As directed by [facility] mupirocin 2 % ointment 1 applic topical BID 14 Days Qty: 22 2RF (DME) KAFO See Rx Instructions .Route .MEDSUPPLY Qty: 1 0RF Rx Instructions: As directed to [facility] tramadol 50 mg tablet 50 mg PO TID PRN (Reason: pain) 30 Days Qty: 90 2RF (DME) counter force band See Rx Instructions .Route .MEDSUPPLY Qty: 1 0RF Rx Instructions: As directed (DME) blood sugar diagnostic Strip See Rx Instructions .ROUTE .MEDSUPPLY Qty: 100 2RF Rx Instructions: ONE DAILY Symbicort 160-4.5 mcg/actuation HFA aerosol inhaler See Rx Instructions .ROUTE .COMPLEX Qty: 11 0RF Dose Instruction: Inhale 2 puffs by mouth twice daily Rx Instructions: Inhale 2 puffs by mouth twice daily albuterol sulfate [ProAir HFA] 90 mcg/actuation HFA aerosol inhaler See Rx Instructions .ROUTE .COMPLEX Qty: 9 0RF Dose Instruction: INHALE 2 PUFFS BY MOUTH EVERY 6 HOURS NEEDED FOR SHORTNESS OF BREATH FOR WHEEZING Rx Instructions: INHALE 2 PUFFS BY MOUTH EVERY 6 HOURS NEEDED FOR SHORTNESS OF BREATH FOR WHEEZING (DME) Left KAFO with knee extension See Rx Instructions .Route .MEDSUPPLY Qty: 1 0RF Rx Instructions: As directed potassium chloride 20 mEq tablet extended release See Rx Instructions .ROUTE .COMPLEX Qty: 60 0RF Dose Instruction: Take 1 tablet by mouth twice daily Rx Instructions: Take 1 tablet by mouth twice daily furosemide 40 mg tablet See Rx Instructions .ROUTE .COMPLEX Qty: 30 0RF Dose Instruction: TAKE 1 TABLET BY MOUTH ONCE DAILY IN THE MORNING Rx Instructions: TAKE 1 TABLET BY MOUTH ONCE DAILY IN THE MORNING amlodipine 5 mg tablet See Rx Instructions .ROUTE .COMPLEX Qty: 90 0RF Dose Instruction: Take 1 tablet by mouth once daily Rx Instructions: Take 1 tablet by mouth once daily finasteride 5 mg tablet See Rx Instructions .ROUTE .COMPLEX Qty: 30 0RF Dose Instruction: Take 1 tablet by mouth once daily Rx Instructions: Take 1 tablet by mouth once daily simvastatin 10 mg tablet See Rx Instructions .ROUTE .COMPLEX Qty: 30 0RF Dose Instruction: Take 1 tablet by mouth once daily Rx Instructions: Take 1 tablet by mouth once daily tamsulosin 0.4 mg capsule See Rx Instructions .ROUTE .COMPLEX Qty: 180 0RF Dose Instruction: Take 2 capsules by mouth once daily Rx Instructions: Take 2 capsules by mouth once daily cetirizine [Allergy Relief (cetirizine)] 10 mg tablet See Rx Instructions .ROUTE .COMPLEX Qty: 90 0RF Dose Instruction: Take 1 tablet by mouth once daily Rx Instructions: Take 1 tablet by mouth once daily gabapentin 800 mg tablet See Rx Instructions .ROUTE .COMPLEX Qty: 90 0RF Dose Instruction: TAKE 1 TABLET BY MOUTH THREE TIMES DAILY Rx Instructions: TAKE 1 TABLET BY MOUTH THREE TIMES DAILY baclofen 5 mg tablet See Rx Instructions .ROUTE .COMPLEX Qty: 90 0RF Dose Instruction: Take 1 tablet by mouth three times daily as needed for muscle spasm Rx Instructions: Take 1 tablet by mouth three times daily as needed for muscle spasm meloxicam 15 mg tablet See Rx Instructions .ROUTE .COMPLEX Qty: 30 0RF Dose Instruction: Take 1 tablet by mouth once daily Rx Instructions: Take 1 tablet by mouth once daily fluticasone propionate 50 mcg/actuation spray,suspension See Rx Instructions .ROUTE .COMPLEX Qty: 16 0RF Dose Instruction: Use 1 spray(s) in each nostril once daily Rx Instructions: Use 1 spray(s) in each nostril once daily hydrochlorothiazide 25 mg tablet See Rx Instructions .ROUTE .COMPLEX Qty: 30 0RF Dose Instruction: Take 1 tablet by mouth once daily Rx Instructions: Take 1 tablet by mouth once daily nitroglycerin 0.4 mg tablet, sublingual See Rx Instructions .ROUTE .COMPLEX Qty: 25 0RF Dose Instruction: DISSOLVE ONE TABLET UNDER THE TONGUE EVERY 5 MINUTES NEEDED FOR CHEST PAIN. DO NOT EXCEED A TOTAL OF 3 DOSES IN 15 MINUTES Rx Instructions: DISSOLVE ONE TABLET UNDER THE TONGUE EVERY 5 MINUTES NEEDED FOR CHEST PAIN. 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 Coding Level of Care Code ED Leacher for Rodney Bryan
[2022-12-24 16:51] LABS: Basophils % 0.5 %; Eosinophils # 0.2 10^3/uL (0.0-0.8); Eosinophils % 1.9 %; Hematocrit 50.1 % (37-53); Lymphocytes # 1.6 10^3/uL (0.8-4.8); Lymphocytes % 19.6 %; Mean Corpuscular HGB Conc 34.1 g/dL (30-55); Mean Corpuscular Hemoglobin 31.8 pg (27-33); Mean Corpuscular Volume 93.1 fl (82-101); Mean Platelet Volume 9.2 fL (7.4-10.4); Monocytes # 0.5 10^3/uL (0.2-0.9); Monocytes % 6.2 %; Neutrophils # 5.91 10^3/uL (1.8-7.7); Neutrophils % 71.6 %; Nucleated Red Blood Cells % 0 %; Platelet Count 221 10^3/cmm (157-399); Red Blood Count 5.38 10^6/uL (3.85-5.65); Red Cell Distribution Width 13.1 % (12.1-15.1); White Blood Count 8.26 10^3/uL (3.29-11.43)
[2022-12-24 16:53] LABS: INR 1.02 (0.8-1.2)
[2022-12-24 16:57] LABS: Erythrocyte Sedimentation Rate 31 mm/hr (0-10)
[2022-12-24 17:00] LABS: Alanine Aminotransferase 23 U/L (0-41); Albumin Level 4.4 g/dL (3.5-5.2); Alkaline Phosphatase 77 U/L (40-130); Anion Gap 15.7 (5-19); Aspartate Amino Transferase 25 U/L (0-40); Blood Urea Nitrogen 23 mg/dL (6-20); C Reactive Protein 5.6 mg/L (0.0-4.9); Calcium 9.8 mg/dL (8.5-10.5); Carbon Dioxide 26 mmol/L (22-29); Chloride 101 mmol/L (98-107); Glucose 112 mg/dL (65-115); Osmolality Calculated 292 mOsm/kg (285-295); Potassium 3.7 mmol/L (3.5-5.1); Sodium 139 mmol/L (136-145); Total Bilirubin 0.5 mg/dL (0.15-1.2); Total Protein 7.4 g/dL (6.6-8.7)
== END 2022-12-24 17:52 | disposition home or self-care (01) ==
PROVIDERS: Emergency Provider Emergency Medicine; PCP Family Medicine
DX: H53.2 Diplopia (principal); Z79.82 Long term (current) use of aspirin; F17.210 Nicotine dependence, cigarettes, uncomplicated; F17.220 Nicotine dependence, chewing tobacco, uncomplicated; I11.0 Hypertensive heart disease with heart failure; I50.9 Heart failure, unspecified; J44.9 Chronic obstructive pulmonary disease, unspecified; E78.5 Hyperlipidemia, unspecified; E11.9 Type 2 diabetes mellitus without complications
CPT/HCPCS: 70450; 80053; 85025; 85610; 85651; 86140; 99284

== ENCOUNTER → 2023-01-18 09:56 | Outpatient (BNVA) | payer MEDICAID, SELFPAY | PROVIDERS: PCP Family Medicine; Visit Provider Internal Medicine | DX: E11.42 Type 2 diabetes mellitus with diabetic polyneuropathy (principal); E11.69 Type 2 diabetes mellitus with other specified complication; E78.2 Mixed hyperlipidemia; N52.9 Male erectile dysfunction, unspecified; E66.01 Morbid (severe) obesity due to excess calories; Z68.41 Body mass index [BMI] 40.0-44.9, adult | CPT/HCPCS: 99214 ==

== ENCOUNTER → 2023-02-01 13:11 | Outpatient (BNVA) | payer MEDICAID, SELFPAY | PROVIDERS: PCP Family Medicine; Visit Provider Internal Medicine Cardiovascular Disease | DX: R00.2 Palpitations (principal); R00.0 Tachycardia, unspecified; I49.1 Atrial premature depolarization; I49.3 Ventricular premature depolarization | CPT/HCPCS: 93270 ==

== ENCOUNTER → 2023-05-26 15:46 | Outpatient (BNVA) | payer MEDICAID, SELFPAY | PROVIDERS: PCP Family Medicine; Visit Provider Orthopaedic Surgery | DX: M96.1 Postlaminectomy syndrome, not elsewhere classified; Z98.1 Arthrodesis status; M48.062 Spinal stenosis, lumbar region with neurogenic claudication | CPT/HCPCS: 72100; 99214 ==

== ENCOUNTER 2023-07-13 14:23 | Outpatient (CLI) | payer MEDICAID, SELFPAY ==
[2023-07-13 15:09] LABS: Creatinine Urine, Random 314 mg/dL (39-259); Microalbum Creatinine Ratio Ur 6 mg/dL (0-20); Microalbumin Random Urine 2 ug/dL (0-20)
[2023-07-13 15:13] LABS: Alanine Aminotransferase 25 U/L (0-41); Albumin Level 3.9 g/dL (3.5-5.2); Alkaline Phosphatase 83 U/L (40-130); Aspartate Amino Transferase 25 U/L (0-40); Blood Urea Nitrogen 18 mg/dL (6-20); Calcium 9.1 mg/dL (8.5-10.5); Carbon Dioxide 24 mmol/L (22-29); Chloride 100 mmol/L (98-107); Chol HDL Ratio 3.84 mg/dL (1.0-5.00); Cholesterol 142 mg/dL (0-200); Estmated Average Glucose 134; Globulin 3.2 g/dL (1.3-4.6); Glomerular Filtration Rate 68.8 mL/min (90-130); Glucose 135 mg/dL (65-115); HDL Cholesterol 37 mg/dL (60-100); Hemoglobin A1C 6.3 % (4.0-6.0); LDL Cholesterol Calculated 78 mg/dL (50-129); LDL HDL Ratio 2.11 RATIO (0.00-3.22); Osmolality Calculated 288 mOsm/kg (285-295); Sodium 137 mmol/L (136-145); Total Bilirubin 0.4 mg/dL (0.15-1.2); Total Protein 7.1 g/dL (6.6-8.7); Triglycerides 134 mg/dL (0-150)
== END 2023-07-13 14:24 | disposition home or self-care (01) ==
PROVIDERS: PCP Family Medicine; Visit Provider Internal Medicine
DX: E11.42 Type 2 diabetes mellitus with diabetic polyneuropathy (principal); E78.5 Hyperlipidemia, unspecified; Z79.899 Other long term (current) drug therapy
CPT/HCPCS: 36415; 80053; 80061; 82044; 83036

== ENCOUNTER → 2023-07-19 12:46 | Outpatient (BNVA) | payer MEDICAID, SELFPAY | PROVIDERS: PCP Family Medicine; Visit Provider Dermatology | DX: D48.5 Neoplasm of uncertain behavior of skin (principal); L30.9 Dermatitis, unspecified; L82.0 Inflamed seborrheic keratosis; L57.0 Actinic keratosis; L21.8 Other seborrheic dermatitis; I87.2 Venous insufficiency (chronic) (peripheral); L82.1 Other seborrheic keratosis; D18.01 Hemangioma of skin and subcutaneous tissue; D22.39 Melanocytic nevi of other parts of face | CPT/HCPCS: 11102; 17000; 17110; 99204 ==

== ENCOUNTER → 2023-08-25 07:33 | Outpatient (BNVA) | payer MEDICAID, SELFPAY | PROVIDERS: PCP Family Medicine; Visit Provider Internal Medicine | DX: E11.42 Type 2 diabetes mellitus with diabetic polyneuropathy (principal); E11.69 Type 2 diabetes mellitus with other specified complication; E78.2 Mixed hyperlipidemia; N52.9 Male erectile dysfunction, unspecified; E66.01 Morbid (severe) obesity due to excess calories; Z68.41 Body mass index [BMI] 40.0-44.9, adult; Z79.85 Long-term (current) use of injectable non-insulin antidiabetic drugs | CPT/HCPCS: 99214 ==

== ENCOUNTER → 2023-12-14 13:49 | Outpatient (BNVA) | payer MEDICAID, SELFPAY | PROVIDERS: PCP Family Medicine; Visit Provider Orthopaedic Surgery | DX: M48.062 Spinal stenosis, lumbar region with neurogenic claudication (principal) | CPT/HCPCS: 72110; 99213 ==

== ENCOUNTER → 2023-12-19 08:25 | Outpatient (BNVA) | payer MEDICAID, SELFPAY | PROVIDERS: PCP Family Medicine; Visit Provider Family Medicine | DX: M96.1 Postlaminectomy syndrome, not elsewhere classified (principal); G56.01 Carpal tunnel syndrome, right upper limb; R25.2 Cramp and spasm; R41.3 Other amnesia; G62.9 Polyneuropathy, unspecified; K21.9 Gastro-esophageal reflux disease without esophagitis | CPT/HCPCS: 80048; 82550; 82607; 82652; 83735; 84443; 86592 ==

== ENCOUNTER → 2023-12-25 14:52 | Outpatient (BNVA) | payer MEDICAID, SELFPAY | PROVIDERS: PCP Family Medicine; Visit Provider Specialist | DX: G56.01 Carpal tunnel syndrome, right upper limb (principal); E11.42 Type 2 diabetes mellitus with diabetic polyneuropathy; E78.2 Mixed hyperlipidemia | CPT/HCPCS: 36415; 73130; 80053; 80061; 82044; 82550; 83036; 99204 ==

== ENCOUNTER 2024-01-17 13:21 | Outpatient (CLI) | payer MEDICAID, SELFPAY ==
--- NOTE | 2024-01-17 13:45 | MR_ITS ---
WS: [id number] MRI LUMBAR SPINE NONCONTRAST HISTORY: Low back and bilateral lower extremity pain. COMPARISON: 05/11/2020 TECHNIQUE: Sagittal and axial multisequence imaging is submitted. Cervical fusion hardware is now evident, new since 05/11/2020. Thoracic disc protrusions with progression at T4-5, T5-6, T10-11 and T11-12. Posterior lumbar fusion at L4-5. Fusion is new since 05/11/2020. 2 to 3 mm retrolisthesis of L1, L2 and L3. 5 mm anterolisthesis of L4. Disc spaces are mildly desiccated and narrowed. Conus terminates normally at L1-2 disc level. L1-L2: Moderate diffuse annular disc bulging with small bilateral foraminal disc protrusions, RIGHT g reater than LEFT. Mild encroachment upon the ventral thecal sac. Mild central, bilateral subarticular recess and RIGHT foraminal stenosis. L2-L3: Marked annular disc bulging with effacement of CSF. Marked ligamentum flavum and facet arthrit is. Progression of stenosis since the prior study. Severe central, bilateral subarticular recess and moderate foraminal stenosis. L3-L4: Diffuse annular disc bulging. Osteophytic ridging. Posterior RIGHT laminectomy defect. Mild de formity of the thecal sac with increasing facet joint arthropathy. Mild progression of central stenos is. Moderate central stenosis with facet arthritis. Moderate RIGHT and mild LEFT foraminal stenosis. L4-L5: Mild annular disc bulging. Facet joint arthropathy. Mild central stenosis with moderate bilate ral foraminal stenosis. L5-S1: Mild disc bulging with a central disc protrusion. Facet joint arthropathy and mild foraminal s tenosis. MR/MR lumbar spine wo con* [id number] IMPRESSION: 1. Interval posterior lumbar fusion at L4-5. 2. L2-3: Progression of stenosis. There is now severe central, bilateral subar ticular recess and moderate foraminal stenosis. Marked encroachment upon the tr aversing L3 nerve roots. 3. L1-2: Mild central, bilateral subarticular recess and RIGHT foraminal steno sis. Not significantly changed. 4. L3-4: Moderate central stenosis with moderate RIGHT and mild LEFT foraminal stenosis. 5. L4-5: Mild central with moderate bilateral foraminal stenosis with mild pro gression. 6. Thoracic disc bulges at T4-5, T5-6, T10-11 and T11-12.
== END 2024-01-17 13:22 | disposition home or self-care (01) ==
LOC: RAD 13:21
PROVIDERS: PCP Family Medicine; Visit Provider Orthopaedic Surgery
DX: M48.062 Spinal stenosis, lumbar region with neurogenic claudication (principal); M99.63 Osseous and subluxation stenosis of intervertebral foramina of lumbar region; M51.34 Other intervertebral disc degeneration, thoracic region; M43.26 Fusion of spine, lumbar region
CPT/HCPCS: 72148

== ENCOUNTER → 2024-02-01 15:15 | Outpatient (BNVA) | payer MEDICAID, SELFPAY | PROVIDERS: PCP Family Medicine; Visit Provider Orthopaedic Surgery | DX: M48.062 Spinal stenosis, lumbar region with neurogenic claudication (principal); E11.9 Type 2 diabetes mellitus without complications; Z09 Encounter for follow-up examination after completed treatment for conditions other than malignant neoplasm | CPT/HCPCS: 36415; 80053; 81001; 83036; 85025; 99214 ==

== ENCOUNTER → 2024-02-20 09:16 | Outpatient (BNVA) | payer MEDICAID, SELFPAY | PROVIDERS: PCP Family Medicine; Visit Provider Family Medicine | DX: Z01.818 Encounter for other preprocedural examination (principal); I49.8 Other specified cardiac arrhythmias | CPT/HCPCS: 93005 ==

== ENCOUNTER 2024-03-25 08:48 | Day surgery (SDC) | payer MEDICAID, SELFPAY ==
[2024-03-25] VITALS (10 sets, daily range): BP systolic 113–175; BP diastolic 74–106; PULSE 93–120; RESP 17–22; TEMP 32.2–36.8; O2SAT 90–96; BMI 44.4
--- NOTE | 2024-03-25 09:30 | P.ANESASSM_ITS ---
Pre-Anesthetic Assessment Height/Weight: Height 5 ft 10 in Weight 310 lb Temp Pulse Resp BP Pulse Ox O2 Del Method 97.9 F 100 17 140/89 96 Room Air 03/25/24 09:17 03/25/24 09:17 03/25/24 09:17 03/25/24 09:17 03/25/24 09:17 03/25/24 09:17 Preop Diagnosis: Lumbar stenosis with neurogenic claudication Operation Date: 03/25/24 10:20 Proposed Procedures p Lumbar Spine Decompression Lumbar Decompression(Not Applicable) - Nadir Arrington, DO Was Beta Ariel taken within 24 hours: N/A Was Clonidine taken within 24 hours: N/A Last intake: Intake Last Liquid Date 03/24/24 Last Liquid Time 23:57 Last Solid Date 03/24/24 Last Solid Time 23:00 Social Tobacco and No alcohol Exam alert, oriented x 3 and regular rate & rhythm Airway Submandibular: within normal limits Cervical ROM: Other (Prior cervical fusion) Mallampati: Class II Dentition: other (Edentulous) Anesthetic Plan ASA status: 3 Anesthesia: General Other: No prior issues with anesthesia NPO since yesterday Limited neck mobility from prior cervical fusion History of Lucio's esophagus and GERD, on omeprazole Hypertension on losartan and hydrochlorothiazide Current smoker, COPD JOVANY on home CPAP Type 2 diabetes, on insulin. Preop BS 135 BMI 44 Plan for GETA Medications/Allergies Home Medications Medication Instructions Recorded Confirmed Last Taken Type aspirin 81 mg tablet,delayed 81 mg PO DAILY 04/16/19 03/21/24 03/20/24 History release triamcinolone acetonide 0.1 % 1 applic topical BID 04/16/19 03/21/24 03/21/24 History topical cream AFO for foot drop bilaterally #1 ea 06/04/20 02/27/24 Unknown Rx blood-glucose meter (OneTouch #1 ea 09/23/20 02/27/24 Unknown Rx Ultra2 Meter) blood sugar diagnostic #100 ea 01/20/21 02/27/24 Unknown Rx terbinafine HCl 1 % topical cream 1 applic topical .1-2 times daily 03/11/21 03/21/24 03/21/24 History PRN Rash AFO for foot drop bilaterally and #1 ea 10/12/21 02/27/24 Unknown Rx diabetic shoes KAFO #1 ea 11/11/21 02/27/24 Unknown Rx mupirocin 2 % topical ointment 1 applic topical BID 2 weeks #22 11/11/21 03/21/24 03/21/24 Rx grams Left KAFO with knee extension #1 ea 11/29/21 02/27/24 Unknown Rx counter force band #1 ea 10/14/22 02/27/24 Unknown Rx CPAP SUPPLIES #1 ea 04/12/23 02/27/24 Unknown Rx electric wheelchair #1 ea 06/16/23 02/27/24 Unknown Rx albuterol sulfate 90 mcg/actuation 2 puff inhalation Q6H PRN 06/26/23 03/25/24 03/25/24 Rx aerosol inhaler shortness of breath or wheezing #6.7 grams ibuprofen 400 mg tablet 400 mg PO TID 08/25/23 03/21/24 03/18/24 History losartan 25 mg tablet 25 mg PO DAILY #90 tabs 12/19/23 03/25/24 03/24/24 Rx tramadol 50 mg tablet 50 mg PO TID PRN pain 30 days #90 12/19/23 03/25/24 03/24/24 Rx tabs amlodipine 5 mg tablet 5 mg PO DAILY 03/21/24 03/21/24 03/21/24 History baclofen 5 mg tablet 5 mg PO TID PRN Muscle Spasm 03/21/24 03/25/24 03/25/24 History budesonide-formoterol HFA 160 2 puff inhalation BID 03/21/24 03/25/24 03/25/24 History mcg-4.5 mcg/actuation aerosol inhaler (Symbicort) dulaglutide 0.75 mg/0.5 mL 0.75 mg SUBCUT .WEEKLY 03/21/24 03/21/24 03/06/24 History subcutaneous pen injector (Trulicity) finasteride 5 mg tablet 5 mg PO DAILY 03/21/24 03/25/24 03/24/24 History fluticasone propionate 50 1 spray intranasal DAILY 03/21/24 03/25/24 03/24/24 History mcg/actuation nasal spray,suspension furosemide 40 mg tablet 40 mg PO DAILY 03/21/24 03/25/24 03/24/24 History gabapentin 800 mg tablet 800 mg PO TID 03/21/24 03/25/24 03/25/24 History hydrochlorothiazide 25 mg tablet 25 mg PO DAILY 03/21/24 03/25/24 03/24/24 History nitroglycerin 0.4 mg sublingual 0.4 mg sublingual PRN 03/21/24 03/21/24 Unknown History tablet omeprazole 40 mg capsule,delayed 40 mg PO DAILY 03/21/24 03/25/24 03/24/24 History release potassium chloride 20 mEq 20 meq PO BID 03/21/24 03/25/24 03/24/24 History tablet,extended release tamsulosin 0.4 mg capsule 0.8 mg PO DAILY 03/21/24 03/25/24 03/24/24 History cetirizine 10 mg tablet 10 mg PO DAILY #90 tabs 03/22/24 03/25/24 03/24/24 Rx Allergies Allergy/AdvReac Type Severity Reaction Status Date / Time bupropion [From Zyban] Allergy Unknown Verified 03/07/24 13:07 duloxetine [From Cymbalta] Allergy ALGY-Difficulty Verified 03/07/24 13:07 Swallowing levofloxacin [From Levaquin] Allergy ADR-Itching Verified 03/07/24 13:07 loratadine [From Claritin] Allergy ALGY-Rash Verified 03/07/24 13:07 Sulfa (Sulfonamide Allergy ALGY-Rash Verified 03/07/24 13:07 Antibiotics) topiramate [From Topamax] Allergy ALGY-Rash Verified 03/07/24 13:07 varenicline [From Chantix] Allergy ALGY-Rash Verified 03/07/24 13:07 [facility] Anesthesia Medical History History of short term memory loss has seen neuro Dr. 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 child Personal history of peptic ulcer disease Lumbar post-laminectomy syndrome Dyslipidemia Carotid stenosis, left Essential (primary) hypertension Chronic GERD Lucio esophagus CHF (congestive heart failure) BPH (benign prostatic hyperplasia) Surgical History Hx of colonoscopy normal 10.10.17 Hx of esophagogastroduodenoscopy EGD 3.27.19--Lucio's History of cholecystectomy H/O hernia repair abdominal wall post surgical hernia History of back surgery hx of 3 lumbar surgeries--has had 2 fusions hx of 1 cervical surgery H/O carpal tunnel repair Left H/O cataract extraction bilateral Family History Father Cancer LUNG Diabetes CAD (coronary artery disease) Mother Cancer STOMACH CAD (coronary artery disease) Sister Down syndrome HALF SISTER Other Parkinson disease Social History Smoking and tobacco/nicotine status: current every day tobacco/nicotine user cigarettes Packs smoked per day: 0.5 Alcohol intake: former Substance/Drug Use: never Lives independently: Yes Household members: spouse Marital status: Number of children: 2 Highest education level completed: 6th Grade Current occupational status: disabled Previous occupational history: saw [employer] Anesthesia Cardiac Studies: Echocardiogram Ultrasound 07/11/19 Cardiac Event Monitor 02/02/23
--- NOTE | 2024-03-25 09:31 | P.HP_ITS ---
Same Day Surgery H&P Indication for Procedure/HPI DATE OF PROCEDURE: March 25, 2024 CHIEF COMPLAINT/INDICATIONFOR SURGICAL PROCEDURE: Back and leg pain PREOP DIAGNOSIS: Lumbar stenosis with neurogenic claudication PLANNED PROCEDURE: Operation Date: 03/25/24 10:20 Proposed Procedures p Lumbar Spine Decompression Lumbar Decompression(Not Applicable) - Nadir Arrington DO Medications/Allergies* Home Medications Medication Instructions Recorded Confirmed Type aspirin 81 mg tablet,delayed 81 mg PO DAILY 04/16/19 03/21/24 History release triamcinolone acetonide 0.1 % 1 applic topical BID 04/16/19 03/21/24 History topical cream terbinafine HCl 1 % topical cream 1 applic topical .1-2 times daily 03/11/21 03/21/24 History PRN Rash ibuprofen 400 mg tablet 400 mg PO TID 08/25/23 03/21/24 History amlodipine 5 mg tablet 5 mg PO DAILY 03/21/24 03/21/24 History baclofen 5 mg tablet 5 mg PO TID PRN Muscle Spasm 03/21/24 03/25/24 History budesonide-formoterol HFA 160 2 puff inhalation BID 03/21/24 03/25/24 History mcg-4.5 mcg/actuation aerosol inhaler (Symbicort) dulaglutide 0.75 mg/0.5 mL 0.75 mg SUBCUT .WEEKLY 03/21/24 03/21/24 History subcutaneous pen injector (Trulicity) finasteride 5 mg tablet 5 mg PO DAILY 03/21/24 03/25/24 History fluticasone propionate 50 1 spray intranasal DAILY 03/21/24 03/25/24 History mcg/actuation nasal spray,suspension furosemide 40 mg tablet 40 mg PO DAILY 03/21/24 03/25/24 History gabapentin 800 mg tablet 800 mg PO TID 03/21/24 03/25/24 History hydrochlorothiazide 25 mg tablet 25 mg PO DAILY 03/21/24 03/25/24 History nitroglycerin 0.4 mg sublingual 0.4 mg sublingual PRN 03/21/24 03/21/24 History tablet omeprazole 40 mg capsule,delayed 40 mg PO DAILY 03/21/24 03/25/24 History release potassium chloride 20 mEq 20 meq PO BID 03/21/24 03/25/24 History tablet,extended release tamsulosin 0.4 mg capsule 0.8 mg PO DAILY 03/21/24 03/25/24 History Allergies/Adverse Reactions Allergy/AdvReac Type Severity Reaction Status Date / Time bupropion [From Zyban] Allergy Unknown Verified 03/07/24 13:07 duloxetine [From Cymbalta] Allergy ALGY-Difficulty Verified 03/07/24 13:07 Swallowing levofloxacin [From Levaquin] Allergy ADR-Itching Verified 03/07/24 13:07 loratadine [From Claritin] Allergy ALGY-Rash Verified 03/07/24 13:07 Sulfa (Sulfonamide Allergy ALGY-Rash Verified 03/07/24 13:07 Antibiotics) topiramate [From Topamax] Allergy ALGY-Rash Verified 03/07/24 13:07 varenicline [From Chantix] Allergy ALGY-Rash Verified 03/07/24 13:07 Pertinent History/Comorbid Conditions* Medical History (Updated 02/01/24 @ 16:35 by Nadir Arrington DO) History of short term memory loss has seen neuro Dr. 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 child Personal history of peptic ulcer disease Lumbar post-laminectomy syndrome Dyslipidemia Carotid stenosis, left Essential (primary) hypertension Chronic GERD Lucio esophagus CHF (congestive heart failure) BPH (benign prostatic hyperplasia) Surgical History (Updated 12/19/23 @ 11:29 by Grace Valentino MD) Hx of colonoscopy normal 10.10.17 Hx of esophagogastroduodenoscopy EGD 3.27.19--Lucio's History of cholecystectomy H/O hernia repair abdominal wall post surgical hernia History of back surgery hx of 3 lumbar surgeries--has had 2 fusions hx of 1 cervical surgery H/O carpal tunnel repair Left H/O cataract extraction bilateral Family History (Updated 04/16/19 @ 11:17 by Dottie Duque LPN) Diabetes Father CAD (coronary artery disease) Father Mother Down syndrome Sister HALF SISTER Cancer Father LUNG Mother STOMACH Parkinson disease Social History Smoking and tobacco/nicotine status: current every day tobacco/nicotine user cigarettes Packs smoked per day: 0.5 Alcohol intake: former Substance/Drug Use: never Lives independently: Yes Household members: spouse Marital status: Number of children: 2 Highest education level completed: 6th Grade Current occupational status: disabled Previous occupational history: saw [employer] Pertinent Exam Findings alert, oriented x 3 and procedure specific exam findings Recommendations Surgery/Procedure today Coding Level of Care Code Acute Code for Chg Randi
[2024-03-25] MEDS: sodium chloride 0.9% 1,000 ML 30 ML IV (09:32)
[2024-03-25] MEDS: ceFAZolin 2,000 mg SDV 2000 MG IVP (10:01)
[2024-03-25] MEDS: lidocaine-epi 1% 20 mL INJ INJECTION (10:30)
[2024-03-25] MEDS: ceFAZolin 1,000 mg SDV 1000 MG IVP (10:31)
--- NOTE | 2024-03-25 11:20 | XR_ITS ---
WS: [id number] C-ARM RADIOGRAPHS LUMBAR SPINE; 3 IMAGES HISTORY: OR PICS COMPARISON: None available. Intraoperative imaging during lumbar spine posterior fusion. XR/XR lumbar spine 2-3V* [id number] IMPRESSION: Intraoperative imaging during lumbar spine fusion.
[2024-03-25] MEDS: albuterol 2.5 mg/3 mL Neb INHALATION (11:25)
--- NOTE | 2024-03-25 11:31 | PM.OP ---
Operative Report Date of procedure: March 25, 2024 Pre-op diagnosis: Lumbar stenosis neurogenic claudication Post-op diagnosis: same Post-op findings: 1. L2-3 laminectomy with partial facetectomy 2. L3-4 laminectomy with partial facetectomy Surgeon: Nadir Arrington DO Estimated blood loss (mL): 5 Procedure: 1. L2-3 laminectomy with partial facetectomy 2. L3-4 laminectomy with partial facetectomy Patient is brought to the operative suite. After undergoing anesthesia they are placed in the prone position. All areas of impingement are well padded. Patient is then prepped and draped in the normal sterile fashion. A skin incision is made over the L2/3 level. This is confirmed under c-arm guidance. A series of dilators are passed and the tubular retractor is docked on the L2 lamina. A bovie is used to clear the soft tissue off the lamina and the L 2/3 facet joint. A high speed maria is then used to perform the laminectomy and take down the medial aspect of the L 2/3 facet joint. A kerrison rongeure was then used to take down the remaining lamina and smooth the edge of the laminectomy up to the point where the ligamentum flavum attaches. Attention was then brought to the medial aspect of the facet joint. The remaining medial aspect of the superior and inferior aspect of the facet joint were taken down with the kerrison from the pedicle of L2 to L 3. The facet joint had significant hypertrophy. Attention was then brought to the Ligamentum Flavum. The ligament was taken down from the lamina of L2 to L3 and out medially to the remaining facet joint. The ligament was thick. The dura was then exposed. The dura was in good repair. The L2 nerve was then traced with a curette out the L2/3 foramen and found to be adequately decompressed. The L3 nerve was traced with a curette around the L3 pedicle. The lateral recess was opened with a kerrison helping to further decompress the L3 nerve. Wound is then irrigated copiously with saline and surgiflo is used to stop any bleeding. The tubular retractor is removed and the A skin incision is made over the L3/4 level. This is confirmed under c-arm guidance. A series of dilators are passed and the tubular retractor is docked on the L3 lamina. A bovie is used to clear the soft tissue off the lamina and the L 3/4 facet joint. A high speed maria is then used to perform the laminectomy and take down the medial aspect of the L 3/4 facet joint. A kerrison rongeure was then used to take down the remaining lamina and smooth the edge of the laminectomy up to the point where the ligamentum flavum attaches. Attention was then brought to the medial aspect of the facet joint. The remaining medial aspect of the superior and inferior aspect of the facet joint were taken down with the kerrison from the pedicle of L3 to L 4. The facet joint had significant hypertrophy. Attention was then brought to the Ligamentum Flavum. The ligament was taken down from the lamina of L3 to L4 and out medially to the remaining facet joint. The ligament was thick. The dura was then exposed. The dura was in good repair. The L3 nerve was then traced with a curette out the L3/4 foramen and found to be adequately decompressed. The L4 nerve was traced with a curette around the L4 pedicle. The lateral recess was opened with a kerrison helping to further decompress the L4 nerve. Wound is then irrigated copiously with saline and surgiflo is used to stop any bleeding. The tubular retractor is removed and the wound is closed with vicryl and monocryl suture. Glue is then used to protect the wound. A sterile dressing is then placed. Patient was then placed in the supine position and transferred to the PACU in stable condition.
[2024-03-25] MEDS: racepinephrine 0.5 mL Neb INHALATION (12:35)
--- NOTE | 2024-03-25 13:10 | ANE.PACU2 ---
Inpatient post-anesthesia follow up: Airway intact: Yes Vital signs: Temperature 98.3 F Pulse Rate 103 Respiratory Rate 20 Blood Pressure 113/79 Pulse Oximetry 94 Oxygen Delivery Me thod Room Air Oxygen Flow Rate 4 Fraction of Inspir ed Oxygen Hydration adequate: Yes Nausea and vomiting: No Pain level: 1 Mental status: Baseline
== END 2024-03-25 13:10 | disposition home or self-care (01) ==
PROVIDERS: PCP Family Medicine; Visit Provider Orthopaedic Surgery
PROC: (CPT 63005; principal; 2024-03-25 10:00)
DX: M48.062 Spinal stenosis, lumbar region with neurogenic claudication (principal); G47.33 Obstructive sleep apnea (adult) (pediatric); Z99.89 Dependence on other enabling machines and devices; E11.9 Type 2 diabetes mellitus without complications; J44.9 Chronic obstructive pulmonary disease, unspecified; E78.5 Hyperlipidemia, unspecified; N40.0 Benign prostatic hyperplasia without lower urinary tract symptoms; I11.0 Hypertensive heart disease with heart failure; I50.9 Heart failure, unspecified; F17.210 Nicotine dependence, cigarettes, uncomplicated; Z79.4 Long term (current) use of insulin; Z98.1 Arthrodesis status; K21.9 Gastro-esophageal reflux disease without esophagitis; Z79.82 Long term (current) use of aspirin
CPT/HCPCS: 63047; 63048; 72100; 76000; A7003; J0690; J1100; J2405; J2704; J2710; J3010; J3490; J7030; J7613

== ENCOUNTER → 2024-06-17 16:01 | Outpatient (BNVA) | payer MEDICAID, SELFPAY | PROVIDERS: PCP Family Medicine; Visit Provider Family Medicine | DX: R25.2 Cramp and spasm (principal); R74.8 Abnormal levels of other serum enzymes | CPT/HCPCS: 80048; 82085; 82550; 83735 ==

== ENCOUNTER → 2024-07-04 13:47 | Outpatient (BNVA) | payer MEDICAID, SELFPAY | PROVIDERS: PCP Family Medicine; Visit Provider Orthopaedic Surgery | DX: M54.50 Low back pain, unspecified (principal) | CPT/HCPCS: 99213 ==

== ENCOUNTER → 2024-08-06 08:27 | Outpatient (BNVA) | payer MEDICAID, SELFPAY | PROVIDERS: PCP Family Medicine; Visit Provider Podiatrist Foot & Ankle Surgery | DX: E11.8 Type 2 diabetes mellitus with unspecified complications (principal); I73.9 Peripheral vascular disease, unspecified; M62.562 Muscle wasting and atrophy, not elsewhere classified, left lower leg; Z91.81 History of falling; M25.371 Other instability, right ankle; M25.372 Other instability, left ankle; G62.9 Polyneuropathy, unspecified; M21.372 Foot drop, left foot; M21.41 Flat foot [pes planus] (acquired), right foot; M21.42 Flat foot [pes planus] (acquired), left foot; M20.41 Other hammer toe(s) (acquired), right foot; M20.42 Other hammer toe(s) (acquired), left foot; E11.42 Type 2 diabetes mellitus with diabetic polyneuropathy | CPT/HCPCS: 99214 ==

== ENCOUNTER → 2024-08-08 10:00 | Outpatient (BNVA) | payer MEDICAID, SELFPAY | PROVIDERS: PCP Family Medicine; Visit Provider Internal Medicine | DX: E11.69 Type 2 diabetes mellitus with other specified complication (principal); E78.2 Mixed hyperlipidemia; E11.42 Type 2 diabetes mellitus with diabetic polyneuropathy; N52.9 Male erectile dysfunction, unspecified; E66.01 Morbid (severe) obesity due to excess calories | CPT/HCPCS: 36415; 80053; 80061; 82044; 83036 ==

== ENCOUNTER → 2024-08-20 14:16 | Outpatient (BNVA) | payer MEDICAID, SELFPAY | PROVIDERS: PCP Family Medicine; Visit Provider Podiatrist Foot & Ankle Surgery | DX: E11.8 Type 2 diabetes mellitus with unspecified complications (principal); I73.9 Peripheral vascular disease, unspecified; M62.562 Muscle wasting and atrophy, not elsewhere classified, left lower leg; Z91.81 History of falling; M25.371 Other instability, right ankle; M25.372 Other instability, left ankle; G62.9 Polyneuropathy, unspecified; M21.372 Foot drop, left foot; M21.41 Flat foot [pes planus] (acquired), right foot; M21.42 Flat foot [pes planus] (acquired), left foot; M20.41 Other hammer toe(s) (acquired), right foot; M20.42 Other hammer toe(s) (acquired), left foot; E11.42 Type 2 diabetes mellitus with diabetic polyneuropathy; R26.89 Other abnormalities of gait and mobility | CPT/HCPCS: 99214 ==

== ENCOUNTER → 2024-09-03 08:19 | Outpatient (BNVA) | payer MEDICAID, SELFPAY | PROVIDERS: PCP Family Medicine; Visit Provider Podiatrist Foot & Ankle Surgery | DX: M62.562 Muscle wasting and atrophy, not elsewhere classified, left lower leg (principal); Z91.81 History of falling; G62.9 Polyneuropathy, unspecified; E11.42 Type 2 diabetes mellitus with diabetic polyneuropathy; L97.922 Non-pressure chronic ulcer of unspecified part of left lower leg with fat layer exposed; I73.9 Peripheral vascular disease, unspecified; M25.371 Other instability, right ankle; M25.372 Other instability, left ankle; M21.372 Foot drop, left foot; M21.41 Flat foot [pes planus] (acquired), right foot; M21.42 Flat foot [pes planus] (acquired), left foot; M20.41 Other hammer toe(s) (acquired), right foot; M20.42 Other hammer toe(s) (acquired), left foot; E11.622 Type 2 diabetes mellitus with other skin ulcer; I83.002 Varicose veins of unspecified lower extremity with ulcer of calf | CPT/HCPCS: 99214 ==

== ENCOUNTER → 2024-09-17 09:01 | Outpatient (BNVA) | payer MEDICAID, SELFPAY | PROVIDERS: PCP Family Medicine; Visit Provider Thoracic Surgery (Cardiothoracic Vascular Surgery) | DX: I96 Gangrene, not elsewhere classified (principal); I87.2 Venous insufficiency (chronic) (peripheral); L97.822 Non-pressure chronic ulcer of other part of left lower leg with fat layer exposed; R82.90 Unspecified abnormal findings in urine; R39.15 Urgency of urination; R61 Generalized hyperhidrosis | CPT/HCPCS: 11042; 80053; 81003; 83615; 84443; 85025; 87086; 97597; A6252 ==

== ENCOUNTER → 2024-09-20 10:48 | Outpatient (BNVA) | payer MEDICAID, SELFPAY | PROVIDERS: PCP Family Medicine; Visit Provider Thoracic Surgery (Cardiothoracic Vascular Surgery) | DX: I96 Gangrene, not elsewhere classified (principal); I87.2 Venous insufficiency (chronic) (peripheral); L97.821 Non-pressure chronic ulcer of other part of left lower leg limited to breakdown of skin | CPT/HCPCS: 29581; A6253 ==

== ENCOUNTER → 2024-09-24 14:37 | Outpatient (BNVA) | payer MEDICAID, SELFPAY | PROVIDERS: PCP Family Medicine; Visit Provider Thoracic Surgery (Cardiothoracic Vascular Surgery) | DX: E11.52 Type 2 diabetes mellitus with diabetic peripheral angiopathy with gangrene (principal); E11.622 Type 2 diabetes mellitus with other skin ulcer; L97.821 Non-pressure chronic ulcer of other part of left lower leg limited to breakdown of skin; I87.2 Venous insufficiency (chronic) (peripheral); Z09 Encounter for follow-up examination after completed treatment for conditions other than malignant neoplasm ==

== ENCOUNTER → 2024-10-01 13:21 | Outpatient (BNVA) | payer MEDICAID, SELFPAY | PROVIDERS: PCP Family Medicine; Visit Provider Thoracic Surgery (Cardiothoracic Vascular Surgery) | DX: I96 Gangrene, not elsewhere classified (principal); I87.2 Venous insufficiency (chronic) (peripheral); L97.821 Non-pressure chronic ulcer of other part of left lower leg limited to breakdown of skin; Z09 Encounter for follow-up examination after completed treatment for conditions other than malignant neoplasm | CPT/HCPCS: 97597; A6251; J9999 ==

== ENCOUNTER → 2024-10-08 13:38 | Outpatient (BNVA) | payer MEDICAID, SELFPAY | PROVIDERS: PCP Family Medicine; Visit Provider Thoracic Surgery (Cardiothoracic Vascular Surgery) | DX: Z09 Encounter for follow-up examination after completed treatment for conditions other than malignant neoplasm (principal); Z87.2 Personal history of diseases of the skin and subcutaneous tissue | CPT/HCPCS: 99212 ==

== ENCOUNTER 2024-10-10 14:40 | Outpatient (CLI) | payer MEDICAID, SELFPAY ==
--- NOTE | 2024-10-10 14:46 | USR_ITS ---
PROCEDURE INFORMATION: Exam: US Retroperitoneal, Complete, Kidneys and Bladder Exam date and time: 10/10/2024 3:01 PM Age: 59 years old Clinical indication: Pain; Other: Kidney; Additional info: Kidney pain TECHNIQUE: Imaging protocol: Real-time ultrasound of the retroperitoneum with image documentation. Complete exam focused on the bilateral kidneys and urinary bladder. COMPARISON: CT abdomen pelvis w con* [id number] 02/08/2018 1:51 PM FINDINGS: Right kidney: Normal. No stones. No hydronephrosis. Left kidney: Normal. No stones. No hydronephrosis. Urinary bladder: Limited evaluation of the urinary bladder. US/US renal BI with PV bladder IMPRESSION: Unremarkable kidneys with the limitation of the urinary bladder.
== END 2024-10-10 14:41 | disposition home or self-care (01) ==
PROVIDERS: PCP Family Medicine; Visit Provider Nurse Practitioner Family
DX: N23 Unspecified renal colic (principal)
CPT/HCPCS: 76770; 76857

== ENCOUNTER → 2024-12-04 09:13 | Outpatient (BNVA) | payer MEDICAID, SELFPAY | PROVIDERS: PCP Family Medicine; Visit Provider Internal Medicine | DX: E11.42 Type 2 diabetes mellitus with diabetic polyneuropathy (principal); E11.69 Type 2 diabetes mellitus with other specified complication; E78.2 Mixed hyperlipidemia; N52.9 Male erectile dysfunction, unspecified; E66.01 Morbid (severe) obesity due to excess calories; Z79.84 Long term (current) use of oral hypoglycemic drugs | CPT/HCPCS: 99214 ==